=== PATIENT | female | born 1980 | race Two or more races ===

== ENCOUNTER 2021-04-18 10:02 | Outpatient (REF) | payer BC, SELFPAY ==
[2021-04-18 10:25] LABS: MANUAL DIFF FLAG NO
[2021-04-18 10:50] LABS: Basophils Percent Auto 0.7 % (0-2); Eosinophils Absolute Auto 0.1 X10*3/uL (0.0-0.4); Eosinophils Percent Auto 0.9 % (0-4); Hematocrit 40.9 % (37-47); Hemoglobin 13.1 g/dl (12.0-16.0); Imm Gran Abs Auto 0.03 X10*3/uL (0.00-0.03); Imm Gran Pct Auto 0.5 % (0.0-0.4); Lymphocytes Absolute Auto 1.8 X10*3/uL (1.2-4.9); Lymphocytes Percent Auto 30.3 % (20-40); Mean Corpuscular Hemoglobin 26.8 pg (27.0-33.0); Mean Corpuscular Volume 83.8 fL (80-98); Mean Platelet Volume 9.6 fL (9.4-12.3); Monocytes Absolute Auto 0.5 X10*3/uL (0.1-1.2); Monocytes Percent Auto 7.9 % (2-11); Neutrophils Absolute Auto 3.5 X10*3/uL (2.0-8.3); Neutrophils Percent Auto 59.7 % (45-73); Platelet Count 245 X10*3/uL (160-400); Red Blood Count 4.88 X10*6/uL (4.20-5.50); Red Cell Distribution Width 14.5 % (11.0-16.0); White Blood Count 5.8 X10*3/uL (4.8-10.8)
[2021-04-18 11:19] LABS: Alanine Aminotransferase 12 U/L (0-31); Albumin Level 4.2 g/dL (3.5-5.0); Alkaline Phosphatase 54 U/L (39-117); Anion Gap 10 (12-20); Aspartate Amino Transferase 17 U/L (5-31); Bilirubin Total 0.9 mg/dL (0.0-1.0); Blood Urea Nitrogen 9 mg/dL (9-16); Calcium 10.7 mg/dL (8.4-10.2); Carbon Dioxide 23 mmol/L (22-29); Chloride 110 mmol/L (96-108); Cholesterol 147 mg/dL; Estimated Glomerular Filt Rate > 60; Glucose Fasting 99 mg/dL (60-99); HDL Cholesterol 48 mg/dL; LDL Cholesterol Calculated 88 mg/dl; Potassium 4.5 mmol/L (3.3-5.1); Sodium 138 mmol/L (135-145); Total Protein 7.2 g/dL (6.5-8.0); Triglycerides 59 mg/dL
[2021-04-25 15:16] LABS: Vitamin D 25-OH, D2 <4 ng/mL; Vitamin D 25-OH, D3 17 ng/mL; Vitamin D 25-OH, Total 17 ng/mL (30-100)
== END 2021-04-18 10:03 | disposition home or self-care (01) ==
LOC: HO.LAB 10:02
PROVIDERS: PCP Internal Medicine; Visit Provider Internal Medicine
DX: E78.5 Hyperlipidemia, unspecified (principal); D64.9 Anemia, unspecified; E55.9 Vitamin D deficiency, unspecified; Z83.3 Family history of diabetes mellitus
CPT/HCPCS: 36415; 80053; 80061; 82306; 85025

== ENCOUNTER 2021-05-20 08:24 | Outpatient (REF) | payer BC, SELFPAY ==
[2021-05-21 13:57] LABS: CT PCR NOT DETECTED (Not Detect.); NG PCR NOT DETECTED (Not Detect.)
[2021-05-21 16:41] LABS: PTHI 191 pg/mL (14-64)
[2021-05-22 10:52] LABS: BV Int Neg Control Negative (Negative); BV Int Pos Control Positive (Positive)
[2021-05-22 14:51] LABS: Calcium, Ionized 5.5 mg/dL (4.8-5.6)
[2021-05-27 02:41] LABS: HPV mRNA E6/E7 rflx Not Detected (Not Detected)
== END 2021-05-20 08:25 | disposition home or self-care (01) ==
LOC: HO.LAB 08:24
PROVIDERS: Absent Provider Internal Medicine; PCP Internal Medicine; Visit Provider Advanced Practice Midwife
DX: Z01.419 Encounter for gynecological examination (general) (routine) without abnormal findings (principal); E83.52 Hypercalcemia; Z98.51 Tubal ligation status; Z20.2 Contact with and (suspected) exposure to infections with a predominantly sexual mode of transmission
CPT/HCPCS: 36415; 82330; 83970; 87480; 87491; 87510; 87591; 87624; 87660; 88142

== ENCOUNTER 2022-03-25 16:10 | Outpatient (REF) | payer BC, SELFPAY ==
[2022-03-27 05:21] LABS: Rubella IgG Antibody 1.87 Index
== END 2022-03-25 16:11 | disposition home or self-care (01) ==
LOC: HO.LAB 16:10
PROVIDERS: PCP Internal Medicine; Visit Provider Internal Medicine
DX: Z01.84 Encounter for antibody response examination (principal)
CPT/HCPCS: 36415; 86735; 86762; 86765

== ENCOUNTER 2022-04-20 16:04 | Outpatient (REF) | payer BC, SELFPAY ==
[2022-04-20 16:44] LABS: Albumin Level 4.2 g/dL (3.5-5.0)
[2022-04-20 17:13] LABS: Thyroid Stimulating Hormone 0.73 uIU/mL (0.32-4.0); Vitamin D 25-OH Total 12.5 ng/mL (>30)
[2022-04-21 10:46] LABS: Calcium (PTHI) 10.8 mg/dL (8.6-10.2); PTHI 179 pg/mL (16-77)
[2022-04-23 10:32] LABS: Calcium, Ionized 5.8 mg/dL (4.8-5.6)
== END 2022-04-20 16:05 | disposition home or self-care (01) ==
LOC: HO.LAB 16:04
PROVIDERS: PCP Internal Medicine; Visit Provider Internal Medicine
DX: E55.9 Vitamin D deficiency, unspecified (principal); E21.3 Hyperparathyroidism, unspecified; R53.83 Other fatigue
CPT/HCPCS: 36415; 82040; 82306; 82310; 82330; 83970; 84443

== ENCOUNTER 2022-07-27 14:54 | Outpatient (REF) | payer BC, SELFPAY ==
[2022-07-28 05:23] LABS: CT PCR NOT DETECTED (Not Detect.); NG PCR NOT DETECTED (Not Detect.)
[2022-07-28 09:44] LABS: BV Int Neg Control Negative (Negative); BV Int Pos Control Positive (Positive)
== END 2022-07-27 14:55 | disposition home or self-care (01) ==
LOC: HO.LNP 14:54
PROVIDERS: PCP Internal Medicine; Visit Provider Advanced Practice Midwife
DX: Z01.419 Encounter for gynecological examination (general) (routine) without abnormal findings (principal); N89.8 Other specified noninflammatory disorders of vagina
CPT/HCPCS: 0353U; 87480; 87510; 87660

== ENCOUNTER 2022-08-19 06:10 | Outpatient (REF) | payer BC, SELFPAY ==
[2022-08-19 06:34] LABS: MANUAL DIFF FLAG NO
[2022-08-19 07:41] LABS: Basophils Percent Auto 0.4 % (0-2); Eosinophils Absolute Auto 0.1 X10*3/uL (0.0-0.4); Eosinophils Percent Auto 1.3 % (0-4); Hematocrit 41.8 % (37.0-47.0); Imm Gran Abs Auto 0.04 X10*3/uL (0.00-0.03); Imm Gran Pct Auto 0.4 % (0.0-0.4); Lymphocytes Absolute Auto 1.8 X10*3/uL (1.2-4.9); Lymphocytes Percent Auto 19.2 % (20-40); Mean Corpuscular HGB Conc 31.1 g/dl (31.0-35.0); Mean Corpuscular Hemoglobin 25.7 pg (27.0-33.0); Mean Corpuscular Volume 82.6 fL (80.0-98.0); Mean Platelet Volume 9.2 fL (9.4-12.3); Monocytes Absolute Auto 0.6 X10*3/uL (0.1-1.2); Monocytes Percent Auto 6.5 % (2-11); Neutrophils Absolute Auto 6.6 x10*3/uL (2.0-8.3); Neutrophils Percent Auto 72.2 % (45-73); Platelet Count 277 X10*3/uL (160-400); Red Blood Count 5.06 X10*6/uL (4.20-5.50); Red Cell Distribution Width 14.8 % (11.0-16.0); White Blood Count 9.1 X10*3/uL (4.8-10.8)
[2022-08-19 08:08] LABS: Alanine Aminotransferase 12 U/L (0-31); Alkaline Phosphatase 68 U/L (39-117); Anion Gap 14 (12-20); Aspartate Amino Transferase 18 U/L (5-31); Bilirubin Total 0.6 mg/dL (0.0-1.0); Blood Urea Nitrogen 7 mg/dL (9-16); Calcium 10.2 mg/dL (8.4-10.2); Carbon Dioxide 20 mmol/L (22-29); Chloride 108 mmol/L (96-108); Cholesterol 171 mg/dL; Estimated Glomerular Filt Rate > 60; Glucose Fasting 92 mg/dL (60-99); HDL Cholesterol 52 mg/dL; LDL Cholesterol Calculated 105 mg/dl; Potassium 4.3 mmol/L (3.3-5.1); Sodium 138 mmol/L (135-145); Total Protein 6.9 g/dL (6.5-8.0); Triglycerides 70 mg/dL
[2022-08-19 08:28] LABS: Vitamin D 25-OH Total 29.7 ng/mL (>30)
[2022-08-20 12:39] LABS: Calcium (PTHI) 10.6 mg/dL (8.6-10.2); PTHI 180 pg/mL (16-77)
[2022-08-20 15:18] LABS: Calcium, Ionized 5.8 mg/dL (4.8-5.6)
== END 2022-08-19 06:11 | disposition home or self-care (01) ==
LOC: HO.LAB 06:10
PROVIDERS: PCP Internal Medicine; Visit Provider Internal Medicine
DX: Z00.00 Encounter for general adult medical examination without abnormal findings (principal); R53.83 Other fatigue; E55.9 Vitamin D deficiency, unspecified; E21.3 Hyperparathyroidism, unspecified
CPT/HCPCS: 36415; 80053; 80061; 82306; 82330; 83970; 85025

== ENCOUNTER → 2022-08-27 15:56 | Outpatient (BNVA) | payer BC, SELFPAY | PROVIDERS: PCP Internal Medicine; Visit Provider Internal Medicine Endocrinology, Diabetes & Metabolism | DX: Z13.89 Encounter for screening for other disorder (principal) ==

== ENCOUNTER 2022-08-29 12:16 | Outpatient (REF) | payer BC, SELFPAY ==
[2022-08-29 12:47] LABS: Creatinine, mg/dL 135.19
[2022-08-29 13:56] LABS: Creatinine, 24Hr Urine 1.5 G/Day (1.0-2.0); Total Volume 24 Hour Urine 1125 mL
[2022-08-31 19:53] LABS: Calcium, 24 Hr Urine 358 mg/24 h; Calcium/Creatinine Ratio 259 mg/g creat (30-275); Creatinine 24Hr Urine 1.38 g/24 h (0.50-2.15)
== END 2022-08-29 12:17 | disposition home or self-care (01) ==
LOC: HO.LNP 12:16
PROVIDERS: Visit Provider Internal Medicine Endocrinology, Diabetes & Metabolism
DX: E83.52 Hypercalcemia (principal)
CPT/HCPCS: 82340; 82570

== ENCOUNTER 2022-10-26 11:43 | Outpatient (REF) | payer BC, SELFPAY ==
[2022-10-26 11:52] LABS: MANUAL DIFF FLAG NO
[2022-10-26 12:03] LABS: Basophils Percent Auto 0.7 % (0-2); Eosinophils Absolute Auto 0.1 X10*3/uL (0.0-0.4); Eosinophils Percent Auto 1.3 % (0-4); Hematocrit 40.2 % (37.0-47.0); Hemoglobin 12.7 g/dl (12.0-16.0); Imm Gran Abs Auto 0.02 X10*3/uL (0.00-0.03); Imm Gran Pct Auto 0.3 % (0.0-0.4); Lymphocytes Absolute Auto 1.8 X10*3/uL (1.2-4.9); Lymphocytes Percent Auto 30.9 % (20-40); Mean Corpuscular HGB Conc 31.6 g/dl (31.0-35.0); Mean Corpuscular Hemoglobin 26.5 pg (27.0-33.0); Mean Corpuscular Volume 83.9 fL (80.0-98.0); Mean Platelet Volume 9.2 fL (9.4-12.3); Monocytes Absolute Auto 0.4 X10*3/uL (0.1-1.2); Monocytes Percent Auto 7.2 % (2-11); Neutrophils Absolute Auto 3.5 x10*3/uL (2.0-8.3); Neutrophils Percent Auto 59.6 % (45-73); Platelet Count 312 X10*3/uL (160-400); Red Blood Count 4.79 X10*6/uL (4.20-5.50)
[2022-10-26 12:22] LABS: Calcium 10.7 mg/dL (8.4-10.2); Estimated Glomerular Filt Rate > 60
[2022-10-28 19:43] LABS: Immunoglobulin E 48 kU/L (<OR=114)
== END 2022-10-26 11:44 | disposition home or self-care (01) ==
LOC: HO.LAB 11:43
PROVIDERS: Internal Medicine Endocrinology, Diabetes & Metabolism; PCP Internal Medicine; Visit Provider Internal Medicine
DX: E83.52 Hypercalcemia (principal); L50.9 Urticaria, unspecified; D64.9 Anemia, unspecified
CPT/HCPCS: 36415; 82310; 82565; 82785; 85025

== ENCOUNTER 2023-06-08 17:21 | Outpatient (AMB) | payer BC, SELFPAY ==
[2023-06-08 17:23] VITALS: BP 110/72; BMI 26.9
--- NOTE | 2023-06-08 17:23 | MHC.PC.OV ---
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 Accompanied by: Self / Same As Patient Allergies No Known Allergies Allergy (Verified 06/08/23 17:33) Medication List - Last Reconciled 06/08/23 by Leanne Castrejon MD calcium citrate-vitamin D3 250 mg-5 mcg (200 unit) (Citracal Regular) 1 tab PO TID Tobacco use date assessed: 10/26/22 Dental Screening Dental Screen Date: 06/08/23 Did you have a dental visit in the last 12 months?: Yes Did you have a dental problem in the last 6 months where you did not have access to dental care?: No Was dental information given to patient?: Patient has dentist HPI HPI Comments History of Present Illness Details This is a 42-year-old female that comes for her physical exam. Last Pap smear was 2021. Has never had a mammogram. Had parathyroidectomy and is on calcium supplements. No chest pain or shortness of breath. [facility] Medical History (Updated 10/26/22 @ 11:36 by Leanne Castrejon MD) Hyperparathyroidism Hypovitaminosis D Hypercalcemia Family history of diabetes mellitus Surgical History History of parathyroid surgery History of removal of calculus of renal pelvis through percutaneous nephrostomy H/O tubal ligation Family History Mother Diabetes Father Heart disease Social History Household Members: Family Housing: House Alcohol intake: never Patient Tobacco Use Status: Never used Tobacco e-Cigarette/Vaping Use: Never Used Second Hand Smoke Exposure: No service: No Current occupational status: employed Current occupational exposures/hazards: No Cognitive needs: No Hearing needs: No Vision needs: No Female Reproductive History Menstrual Age of Menarche: 13 Questionnaire Thrive Questionnaire Date Thrive assessed: 08/24/22 KAVITA-7 AMB Questionnaire KAVITA-7 Date KAVITA - 7 assessed: 10/26/22 Source: Developed by Beckie SierraW. Feliciano, Jose Daniel Barry and colleagues, with an educational sunshine from [employer] Review of Systems Const All systems reviewed & are unremarkable except as noted in HPI and below Eyes Reports no additional complaints, Denies change in vision and Denies other visual disturbances Card Denies chest pain at rest, Denies chest pain with activity, Denies edema, Denies irregular heart rhythm, Denies claudication, Denies dyspnea, Denies dyspnea on exertion, Denies orthopnea, Denies paroxysmal nocturnal dyspnea and Denies slow heart rate Resp Denies cough, Denies dyspnea and Denies dyspnea on exertion GI Denies abdominal pain, Denies change in bowel habits, Denies excessive flatus, Denies nausea and Denies vomiting Denies urinary incontinence, Denies urinary hesitancy and Denies urinary urgency Musc Denies abnormal gait, Denies atrophy, Denies deformity and Denies limited range of motion Skin/Breast Denies bleeding lesions, Denies changing lesions and Denies rash Neuro Denies abnormal gait and Denies lack of coordination Physical exam (Primary Care) Vital Signs: Last Vital Signs BP 110/72 06/08/23 17:23 BMI result Body Mass Index 26.9 Tobacco/Smoking Status: Tobacco use Status Tobacco use date assessed 10/26/22 06/08/23 17:28 Patient Tobacco Use Status Never used Tobacco 06/08/23 17:28 Tobacco use type 05/25/22 09:09 e-Cigarette/Vaping Use Never Used 06/08/23 17:28 Thrive Assessment: Date of Thrive Assessment Date Thrive assessed 08/24/22 06/08/23 17:28 Const Orientation/consciousness: patient oriented x3 [facility]: Yes normal to inspection, Yes normocephalic and Yes atraumatic Ears: external ears normal Eyes General: appearance normal, both eyes and all related structures Eyelids: Yes eyelids normal Conjunctivae: conjunctivae normal Neck Neck: Yes normal visual inspection and Yes supple Resp Effort & Inspection: normal respiratory effort Auscultation: clear to auscultation bilaterally Cardio Jugular venous distension: no JVD Rate: regular rate Rhythm: regular rhythm Heart sounds: S1 normal heart sound present and S2 normal heart sound present GI Inspection: Yes normal to inspection Palpation (GI): Soft to palpation and nontender Auscultation: normal bowel sounds Skin General skin exam: no rashes or lesions noted Neuro General: patient oriented x3 and no focal motor deficits Extrem General: Yes full ROM Psych Appearance: grossly normal Office Procedures Flu Questionnaire Does the patient have a severe egg allergy?: No Does the patient have severe life threatening allergies?: No Does the patient have a fever or illness today?: No Has the patient ever had Guillain-[place] Syndrome?: No Has the patient ever had any past reaction to a flu shot?: No Immunizations flu vacc [id number] 6mos up(PF) 60 mcg(15 mcgx4)/0.5 mL IM syringe Performing Provider: Leanne Castrejon MD Performing Location: [facility] Administered by: EJ Marley on 06/08/23 17:48 Dose Route Admin Location Dispensed Lot Number Expiration Date NDC Tear Down Matcher 0.5 mL IM Right Deltoid 0.5 mL [id number] 01/09/24 60705-792-51 [employer] VIS Given Date VIS Provided VIS Publication Date 06/08/23 Single Vaccine 21 Eligibility Eligibility Date Funding Source Not [facility] Eligible 06/08/23 Private Assessment and Plan Assessment & Plan (1) Physical exam: Code(s): Z00.00 - Encounter for general adult medical examination without abnormal findings Plan: Repeat in a year. Orders: Orders MM screening mammo BI Today Z12.31 - Encounter for screening mammogram for malignant neoplasm of breast Lipid Panel Today Z00.00 - Encounter for general adult medical examination without abnormal findings [employer] Panel Fast Today Z00.00 - Encounter for general adult medical examination without abnormal findings Influenza [id number] Immunization Today Z23 - Encounter for immunization Coding Level of Care Code Est Pt Prev Care 40-64y(54667) Diagnoses Physical exam Z00.00 Time Spent (min) 32
== END 2023-06-08 17:48 | disposition home or self-care (01) ==
LOC: HO.HMGH 17:21
PROVIDERS: PCP Internal Medicine; Visit Provider Internal Medicine
DX: Z00.00 Encounter for general adult medical examination without abnormal findings (principal); Z23 Encounter for immunization
CPT/HCPCS: 90471; 90686; 99396

== ENCOUNTER 2023-07-15 12:25 | Outpatient (REF) | payer BC, SELFPAY ==
--- NOTE | ~2023-07-15 | MM_ITS ---
EXAMINATION: MM SCREENING DIGITAL BREAST TOMOSYNTHESIS, BILATERAL CLINICAL INFORMATION: Screening. Asymptomatic. COMPARISON: Mammography: This is a baseline mammogram. TECHNIQUE: Digital breast tomosynthesis is performed in both the craniocaudal and mediolateral oblique views along with computer-aided detection (CAD). Synthesized 2D images are generated from the tomosynthesis. FINDINGS: The breasts are heterogeneously dense, which may obscure small masses (ACR BI-RADS breast composition Category c). There is a focal asymmetry in the upper inner quadrant of the right breast which warrants additional mammographic and targeted sonographic evaluation. There is a focal asymmetry in the upper outer quadrant of the left breast which warrants additional mammographic and targeted sonographic evaluation. There are no abnormal calcifications in either breast. MM/MM tomosynthesis screening BI IMPRESSION: Bilateral focal asymmetries warrant additional mammographic and targeted sonographic evaluation ASSESSMENT: BI-RADS BI-RADS 0 - Incomplete: Needs additional Imaging. RECOMMENDATION: 1. Additional views of both breasts 2. Targeted ultrasound of both breasts. 3. Radiology department staff will contact the patient for additional imaging. Additional Imaging required This examination should not preclude the clinical evaluation of a suspicious palpable abnormality. This patient's information was entered into a reminder system with a target due date for their next mammogram.
== END 2023-07-15 12:26 | disposition home or self-care (01) ==
LOC: HO.MAMMO 12:25
PROVIDERS: PCP Internal Medicine; Visit Provider Internal Medicine
DX: Z12.31 Encounter for screening mammogram for malignant neoplasm of breast (principal)
CPT/HCPCS: 77063; 77067

== ENCOUNTER → 2023-07-15 12:30 | Outpatient (BNV) | payer BC, SELFPAY | PROVIDERS: PCP Internal Medicine; Visit Provider Radiology Diagnostic Radiology | DX: Z12.31 Encounter for screening mammogram for malignant neoplasm of breast (principal) | CPT/HCPCS: 77063; 77067 ==

== ENCOUNTER 2023-09-07 13:39 | Outpatient (REF) | payer BC, SELFPAY ==
--- NOTE | ~2023-09-07 | MM_ITS ---
EXAMINATION: MM DIAGNOSTIC DIGITAL BREAST TOMOSYNTHESIS, BILATERAL US BREAST LIMITED, BILATERAL MAMMOGRAPHY: CLINICAL INFORMATION: Follow-up bilateral focal asymmetries seen on baseline mammography 07/15/2023, including a region of architectural distortion at 10:00 on the right. COMPARISON: Mammography: Baseline exam 07/15/2023. TECHNIQUE: Digital breast tomosynthesis is performed in the following views: Bilateral full-field digital 3-D ML views, bilateral 3-D small paddle spot compression MLO views, bilateral small paddle 3-D spot compression CC views. Computer-aided diagnosis was used for this study. FINDINGS: The breasts are heterogeneously dense, which may obscure small masses (ACR BI-RADS breast composition Category c). RIGHT BREAST: -There is a significant focus of architectural distortion in the upper slightly inner right breast, middle one third, 10:00 axis, best appreciated on the ML, and spot compression CC view. This is suspicious and will be evaluated with ultrasound to assess for underlying mass. -In the 9:00 axis of the right breast there is an oval mass measuring approximate 7 mm which will be evaluated by ultrasound. -In the 10:00 axis of the right breast, there is a lymph node versus lobular mass measuring 9 mm which will be evaluated by ultrasound. -No definite axillary adenopathy noted. -No skin thickening noted. LEFT BREAST: -In the 3:00 axis, there is a lobular mass posterior depth measuring 1.8 x 1.3 x 1.2 cm on mammography. This will be evaluated by ultrasound. -In the 2:00 axis, there is an oval circumscribed mass posterior depth measuring 1.0 cm on mammography. This will be evaluated by ultrasound. -In the 2:00 axis, there is an immediately abutting lobulated mass measuring 8 x 6 mm on mammography. This will be evaluated by ultrasound. -No axillary or skin thickening is evident. ULTRASOUND: CLINICAL INFORMATION: Evaluate bilateral breast abnormalities as described above. COMPARISON: None TECHNIQUE: Targeted sonographic evaluation of both breasts was performed using a high frequency linear transducer. Selected archived documentation. FINDINGS: RIGHT BREAST: -In the 10:00 axis, 5 cm from the nipple, there is an irregular shadowing somewhat linear markedly hypoechoic mass with irregular margins measuring an estimated 1.7 x 0.7 x 0.6 cm (approximate due to dense posterior shadowing) with associated color flow on color Doppler imaging, dense posterior shadowing, and surrounding hyperechoic fat. This finding is highly suspicious and ultrasound-guided biopsy recommended. This correlates well with the area of architectural distortion. -In the 9:00 axis, 8 cm from the nipple, there is a 5 x 4 x 7 cm lobular mass with good through transmission, no internal color Doppler flow, hypoechoic, highly suggestive of a fibroadenoma. Six-month follow-up recommended of this finding. -In the 10:00 axis, 10 cm from the nipple, there is an oval hypoechoic minimally lobular mass with through transmission measuring 9 x 6 x 3 cm, also likely a benign fibroadenoma. Six-month interval follow-up recommended of this finding. -No abnormal lymph nodes are noted in the right axilla. LEFT BREAST: -In the 3:00 axis, 6 cm from the nipple, there is a 1.9 x 1.1 x 1.5 cm oval hypoechoic mass with some degree of through transmission, lobulated margins, and no internal color Doppler flow, most likely a fibroadenoma or variant. Ultrasound-guided biopsy recommended given size. -The 2:00 axis just abutting the larger mass, 5 cm from the nipple, there is a macrolobulated somewhat irregular hypoechoic mass measuring 8 x 6 x 8 mm, with good through transmission, no internal color Doppler flow, most likely a benign fibroadenoma. Six-month follow-up recommended. -In the 2:00 axis, 5 cm from the nipple, also just abutting the larger mass, there is a oval circumscribed hypoechoic nodule with good through transmission measuring 6 x 4 x 4 mm. This is likely a benign fibroadenoma. Six-month interval follow-up recommended. MM/MM tomosynthesis diagnostic BI IMPRESSION: Right Breast: -Suspicious finding at 10:00 axis correlating with the region of architectural distortion for which ultrasound-guided biopsy is recommended. See above for details. 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 -There is no evidence of abnormal right axillary lymphadenopathy. Left Breast: -At the 3:00 axis, 6 cm from the nipple there is a 1.9 cm oval hypoechoic lobular mass, likely fibroadenoma or variant, for which ultrasound-guided biopsy is recommended given size and appearance. -At the 2:00 axis just abutting the larger mass, 5 cm from the nipple, there is a second macrolobulated somewhat irregular probable fibroadenoma measuring 8 x 6 x 8 mm, for which ultrasound-guided biopsy is recommended for confirmation. -Also is a 2:00 axis just abutting the larger mass, 5 cm from the nipple, there is a third oval circumscribed nodule with good through transmission measuring 6 mm. This is likely a benign fibroadenoma and six-month interval follow-up is recommended. Findings and plan discussed with the patient by the technologist in detail, who understands 3 site ultrasound-guided biopsy (2 on the left, 1 on the right) is necessary. OVERALL ASSESSMENT: Mammography: BI-RADS 4 - Suspicious finding Ultrasound: BI-RADS 4 - Suspicious finding RECOMMENDATION: Biopsy recommended This patient's information was entered into a reminder system with a target due date for their next mammogram.
== END 2023-09-07 13:40 | disposition home or self-care (01) ==
LOC: HO.MAMMO 13:39
PROVIDERS: PCP Internal Medicine; Visit Provider Internal Medicine
DX: N64.89 Other specified disorders of breast (principal)
CPT/HCPCS: 76642; 77062; 77066

== ENCOUNTER → 2023-09-07 14:00 | Outpatient (BNV) | payer BC, SELFPAY | PROVIDERS: PCP Internal Medicine; Visit Provider Radiology Diagnostic Radiology | DX: R92.8 Other abnormal and inconclusive findings on diagnostic imaging of breast (principal) | CPT/HCPCS: 76642; 77062; 77066 ==

== ENCOUNTER 2023-09-10 10:34 | Outpatient (AMB) | payer BC, SELFPAY ==
--- NOTE | 2023-09-10 10:35 | A.OFFVIS_ITS ---
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 Mane Valdez. [facility] Medical History Hyperparathyroidism Hypovitaminosis D Hypercalcemia Family history of diabetes mellitus Surgical History History of parathyroid surgery History of removal of calculus of renal pelvis through percutaneous nephrostomy H/O tubal ligation Family History Mother Diabetes Father Heart disease Social History Household Members: Family Housing: House Alcohol intake: never Patient Tobacco Use Status: Never used Tobacco e-Cigarette/Vaping Use: Never Used Second Hand Smoke Exposure: No service: No Current occupational status: employed Current occupational exposures/hazards: No Cognitive needs: No Hearing needs: No Vision needs: No Female Reproductive History Menstrual Age of Menarche: 13 Date of last menstrual period: 08/29/23 control method: permanent sterilization Total pregnancies: 3 Full term: 2 Date of last pap smear: 06/01/21 (negative) History of abnormal pap smear: No Date of Mammogram: 09/07/23 (abnormal) History of abnormal mammogram: Yes (Evaluate Bilateral Breast abnormalities) Physical Exam Vital Signs: Last Vital Signs BP 120/78 09/10/23 10:58 BMI result Body Mass Index 26.9 Const General: healthy appearing, comfortable, no acute distress, well developed and alert Nutritional Appearance: average body habitus Orientation/consciousness: patient oriented x3 Limitations: no limitations HEENT Head: Yes normocephalic Neck Other: Patient has scars from parathyroidectomy surgery extremely well. Neck: Yes normal visual inspection Chest Chest palpation & inspection: normal inspection of the chest Breast/axilla inspection: normal inspection of the breasts and normal inspection of the axillae Breast/axilla palpation: normal palpation of the breasts and normal palpation of the axillae Resp Effort & Inspection: normal respiratory effort GI Inspection: Yes normal to inspection, No Abdominal wall edema and No distended Palpation (GI): Soft to palpation and nontender Other: Normal healthy pink vagina with clear mucus that appears within normal limits cervix multiparous pink mobile nontender anterior uterus is small retroverted and retroflexed mobile nontender, adnexa nontender no organ a megaly, good tone with Kegel. General: Yes bladder normal to palpation External Female Exam: normal external appearance and normal appearance of the urethra Speculum Exam - Vagina: normal appearance of the vagina, normal palpation and normal vaginal discharge Speculum Exam - Cervix: normal appearance of the cervix, normal palpation and nontender Bimanual exam- vagina & uterus: normal bimanual exam, normal palpation, uterine size normal, bladder normal to palpation, consistency normal, normal palpation, uterine mobility normal, uterine shape normal, No Cervical tenderness present, non-tender and no cervical motion tenderness Bimanual Exam- Adnexa, other: normal adnexae, no masses, normal and No adnexal tenderness Neuro General: patient oriented x3 Results Reviewed Results Reviewed: Name: Remy Marcelo Age/Sex: 40/F Attending: Shweta Ford CNM : 1980 Submitted by: Shweta Ford CNM Copies to: Leanne Lopez MD MR #: [id number] Status: DEP REF Collected: 05/20/21 Location: .LAB Received: 05/22/21 Interpretation Satisfactory for evaluation. Blood. Mild inflammation. Negative for intraepithelial lesion or malignancy. HPV mRNA E6/E7: NOT DETECTED This assay detects E6/E7 viral messenger RNA (mRNA) from 14 high-risk HPV types (16, 18, 31, 33, 35, 39, 45, 51, 52, 56, 58, 59, 66, 68) HPV testing performed by [facility], [place], [place]. See reference laboratory portion of the EMR for entire report. Clinical Information LMP: 05/16/21 Previous PAP test: Unknown date (? 6 yrs ago), WNL Material Received ThinPrep-Cervical Copies To Shweta Ford CNM [address] [place] [address] Dr. Loya [address] [id number] Leanne Lopez MD [address] [place] [address] Dr. [address]oya [address] [id number] Electronically Signed By: GEORGETTE Garcia (ASCP) 06/03/21 1428 The Pap Test is a screening procedure with the inherent possibility of both false negative and false positive results. Results should be interpreted in the context of historic and current clinical findings. Reliability of the Pap Test is enhanced by performing the test on a regular repetitive basis. Patient: Remy Marcelo Age/Sex: 40/F MR#: [id number] Page 1 of 1 Assessment & Plan Assessment & Plan (1) Well woman exam with routine gynecological exam: Code(s): Z01.419 - Encounter for gynecological examination (general) (routine) without abnormal findings (2) Cervical cancer screening: Comment: 05/20/21 pap= neg, neg hpv Code(s): Z12.4 - Encounter for screening for malignant neoplasm of cervix Plan -----Discussed in this visit the following: healthy balanced diet, regular and consistent exercise, getting recommended health screens, doing the best she can for her particular health concerns, kegel exercises, pap smear screening and followup recommendations, mammography screening and SBE, normal changes in cycles in her life stage--- She is taking very good care of herself and I wished her luck with her biopsy next week. We will see her every year no testing was necessary today and she de clined any STI testing if she has no concerns it would not be any testing required until her next Pap smear which would be in 2025 5 years from her last negative. . Coding Level of Care Code Est Pt Prev Care 40-64y(89055) Diagnoses Well woman exam with routine gynecological exam Z01.419 Cervical cancer screening Z12.4
[2023-09-10 10:58] VITALS: BP 120/78; BMI 26.9
== END 2023-09-10 11:39 | disposition home or self-care (01) ==
LOC: HO.HWSM 10:35
PROVIDERS: PCP Internal Medicine; Visit Provider Advanced Practice Midwife
DX: Z01.419 Encounter for gynecological examination (general) (routine) without abnormal findings (principal); Z12.4 Encounter for screening for malignant neoplasm of cervix
CPT/HCPCS: 99396

== ENCOUNTER → 2023-09-10 10:34 | Outpatient (BNVA) | payer BC, SELFPAY | PROVIDERS: PCP Internal Medicine; Visit Provider Advanced Practice Midwife ==

== ENCOUNTER 2023-09-15 07:57 | Outpatient (AMB) | payer BC, SELFPAY ==
--- NOTE | 2023-09-15 08:05 | MHC.OFFVIS ---
Intake Vital Signs 09/15/23 08:06 Height 5 ft 2 in Weight 146 lb BMI 26.7 BP 129/71 Blood Pressure Location Rt brachial Position Sitting Pulse 68 Intake Visit Reasons: rt breast us guided bx & left breast 2 areas Intake Note: This patient presents for a breast consult for right breast Ultrasound guided biopsy 10 o'clock mass, left breast 2 areas 2 & 3 o'clock mass. Pt c/o; reports no breast complaints at this time. Digital Marketing Program Manager Required: Yes Digital Marketing Program Manager Language: Ux Engineer Name: Pt declined audit associate Accompanied by: Spouse Allergies No Known Allergies Allergy (Verified 09/15/23 08:15) Medication List - Last Reconciled 09/15/23 by Mane Valdez MD calcium carbonate 500 mg PO DAILY calcium citrate-vitamin D3 250 mg-5 mcg (200 unit) (Citracal Regular) 1 tab PO TID HPI rt breast us guided bx & left breast 2 areas HPI Details 43-year-old female referred for breast masses. She had undergone a screening mammogram last month showing bilateral breast masses. She was brought in for targeted mammogram and ultrasound. This showed a hypoechoic mass with irregular margins measuring 1.7 x 0.7 x 0.6 at the 10 o'clock position of the left breast. An ultrasound guided biopsy had been recommended for this. On the left breast was note of a 1.9 x 1.1 by 1.5 oval hypoechoic mass at the 3 o'clock position. An ultrasound-guided biopsy was also recommended for this. There was a 2nd mass measuring 8 x 6 x 8 mm at the 02:00 o'clock position that appears to be a fibroadenoma but an ultrasound-guided biopsy was also recommended for this. He denies any palpable breast masses Her menarche was at age of 13. She had 3 pregnancies. Her 1st was the age of 19. She still has her periods She denies a family history of breast cancer. [facility] Medical History Left breast mass Breast mass, right Hyperparathyroidism Hypovitaminosis D Hypercalcemia Family history of diabetes mellitus Surgical History History of parathyroid surgery History of removal of calculus of renal pelvis through percutaneous nephrostomy H/O tubal ligation Family History Mother Diabetes Father Heart disease Social History Household Members: Family Housing: House Alcohol intake: never Patient Tobacco Use Status: Never used Tobacco e-Cigarette/Vaping Use: Never Used Second Hand Smoke Exposure: No service: No Current occupational status: employed Current occupational exposures/hazards: No Cognitive needs: No Hearing needs: No Vision needs: No Female Reproductive History Menstrual Age of Menarche: 13 Total pregnancies: 2 Full term: 2 Review of Systems Const Denies chills and Denies fever(s) Card Denies chest pain, Denies dyspnea and Denies dyspnea on exertion Resp Denies cough, Denies dyspnea and Denies dyspnea on exertion GI Denies hematochezia and Denies change in bowel habits Denies hematuria Musc Denies back pain and Denies limited range of motion Neuro Denies focal weakness and Denies convulsions Psych Denies depression and Denies mood swings Physical Exam Vital Signs: Last Vital Signs Pulse 68 09/15/23 08:06 BP 129/71 09/15/23 08:06 BMI result Body Mass Index 26.7 Const General: comfortable and no acute distress Orientation/consciousness: patient oriented x3 Neck Neck: Yes no lymphadenopathy Chest Other: No palpable breast masses, no nipple or skin changes, no axillary lymphadenopathy Resp Auscultation: clear to auscultation bilaterally Cardio Rhythm: regular rhythm GI Palpation (GI): Soft to palpation, nontender and no guarding Neuro General: patient oriented x3 Assessment & Plan Assessment & Plan (1) Left breast mass: Code(s): N63.20 - Unspecified lump in the left breast, unspecified quadrant Plan: She has 2 left breast masses as described above an ultrasound-guided biopsy had been recommended for these 2 lesions. I explained to her the [facility] I will see her again in the office next week to discuss the path report. (2) Breast mass, right: Code(s): N63.10 - Unspecified lump in the right breast, unspecified quadrant Plan: She has a right breast mass as described above seen on ultrasound. An ultrasound-guided biopsy had been recommended. She understands the technique of this procedure. I will see her in the office next week to review the path report as well. Orders: Orders US breast ndl core biopsy LT Today N63.20 - Unspecified lump in the left breast, unspecified quadrant US breast ndl core biopsy RT Today N63.10 - Unspecified lump in the right breast, unspecified quadrant US breast ndl core bio ea add Today N63.20 - Unspecified lump in the left breast, unspecified quadrant Coding Level of Care Code New Pt Level 3 (62526) Diagnoses Left breast mass N63.20 Breast mass, right N63.10
[2023-09-15 08:06] VITALS: BP 129/71; PULSE 68; BMI 26.7
== END 2023-09-15 08:43 | disposition home or self-care (01) ==
PROVIDERS: PCP Internal Medicine; Visit Provider Surgery
DX: N63.20 Unspecified lump in the left breast, unspecified quadrant (principal); N63.10 Unspecified lump in the right breast, unspecified quadrant
CPT/HCPCS: 99203

== ENCOUNTER 2023-09-15 08:51 | Outpatient (REF) | payer BC, SELFPAY ==
--- NOTE | ~2023-09-15 | US_ITS ---
PROCEDURE: US GUIDED BREAST BIOPSY, Bilateral CLINICAL INFORMATION: -Right breast linear shadowing abnormality 10:00 axis for which ultrasound-guided biopsy was recommended, with clip placement and correlation with postbiopsy mammography for assessment of distortion right breast. 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 COMPARISON: None. PROCEDURAL DETAILS: The details of the procedure, as well as the risks, benefits, and alternatives to the procedure were explained to the patient in detail and all of her questions were answered, after which written informed consent was obtained. Site and side were confirmed. RIGHT breast, 10:00 axis biopsy: sonography revealed an irregular linear region of abnormal shadowing in the 10:00 axis right breast, 5 cm from the nipple. A time-out was performed, the lesion intended for biopsy was targeted, and the skin of the overlying right breast was then marked, prepped and draped in the usual sterile fashion. Using sonographic guidance, sterile technique, and 1% lidocaine without epinephrine for local anesthesia, multiple core biopsies were obtained through the targeted area with a 14G spring loaded Sertera core biopsy device. There was real-time confirmation of appropriate needle passage. Sampling was documented. At the completion of tissue sampling, a single barrel shaped metallic clip was deposited at the biopsy site. LEFT breast, 2:00 axis hypoechoic mass biopsy: sonography revealed a lobular hypoechoic mass with good through transmission at the 2:00 axis, 5 cm from the nipple, measuring approximately 8 x 6 x 8 mm. A time-out was performed, the lesion intended for biopsy was targeted, and the skin of the left breast was then marked, prepped and draped in the usual sterile fashion. Using sonographic guidance, sterile technique, and 1% lidocaine without epinephrine for local anesthesia, multiple core biopsies were obtained through the targeted area with a 14G spring loaded Sertera core biopsy device. There was real-time confirmation of appropriate needle passage. Of note, the majority of the lesion collapsed after the first biopsy pass, suggesting the lesion was a complicated cyst. Sampling was documented. At the completion of tissue sampling, a single open coil-shaped metallic clip was deposited at the biopsy site. LEFT breast, 3:00 axis hypoechoic mass biopsy: sonography revealed a lobular hypoechoic mass at the 3:00 axis, 6 cm from the nipple, measuring 1.9 x 1.1 x 1.5 cm. A time-out was performed, the lesion intended for biopsy was targeted, and the skin of the left breast was then marked, prepped and draped in the usual sterile fashion. Using sonographic guidance, sterile technique, and 1% lidocaine without epinephrine for local anesthesia, multiple core biopsies were obtained through the targeted area with a 14G spring loaded [employer] core biopsy device. There was real-time confirmation of appropriate needle passage. Sampling was documented. At the completion of tissue sampling, a single butterfly-shaped metallic clip was deposited at the biopsy site. There was no evidence of immediate complication. SPECIMEN: 3 well formed core samples were obtained from each site. DIGITAL POST-PROCEDURE MAMMOGRAPHY: Breast density: The tissue is heterogeneously dense which may obscure small masses. BI-RADS version 5, category C. There are no new mammographic findings demonstrated. The postprocedure 2-view direct digital RIGHT mammogram reveals discordance of the 10:00 region biopsied with the initially targeted area of architectural distortion, which appears to reside approximately 2:00 axis right breast. This was communicated to the patient, and the 2:00 axis distortion will require stereotactic sampling. No hematoma. The postprocedure 2 view direct digital left mammogram reveals both the 2:00 and 3:00 axis biopsy clips in expected, accurate position. No evidence of clip migration or hematoma. The patient tolerated the procedure well and, after assuring adequate hemostasis, was discharged in good condition after reviewing postbiopsy breast care instructions. Final pathology results are pending. US/ breast ndl core biopsy LT IMPRESSION: 1. No immediate complication from 1 site ultrasound-guided percutaneous biopsy RIGHT breast. Of note, there was discordance of the right breast biopsied lesion with the initially targeted area of architectural distortion. This was discussed with the patient after the procedure, and stereotactic biopsy of the 2:00 axis distortion is recommended and will be scheduled. 2. No immediate complication from 2 site ultrasound-guided percutaneous biopsy LEFT breast. The 2:00 axis lobular mass essentially collapsed after the first biopsy pass, suggestive of a complicated cyst. No complication from the 3:00 axis biopsy of the larger lobulated mass measuring 1.9 cm. 3. The 2-view direct digital postprocedure LEFT breast mammogram reveals satisfactory and accurate positioning of both of the biopsy clips. 4. Final pathology results are pending. A separate report with final recommendations will be issued once these results are made available.
[2023-09-15] MEDS: Lidocaine HCl 1 % 20 ML VIAL 18 ML SUBCUT (11:07)
[2023-09-15] MEDS: Sodium Bicarbonate 8.4% 50 MEQ/50 ML VIAL SUBCUT (11:08)
== END 2023-09-15 08:52 | disposition home or self-care (01) ==
LOC: HO.MAMMO 08:51
PROVIDERS: PCP Internal Medicine; Visit Provider Surgery
DX: N63.11 Unspecified lump in the right breast, upper outer quadrant (principal); N63.25 Unspecified lump in the left breast, overlapping quadrants
CPT/HCPCS: 19083; 19084; 77062; 77066; 88305; A4648; C1894

== ENCOUNTER → 2023-09-15 09:30 | Outpatient (BNV) | payer BC, SELFPAY | PROVIDERS: PCP Internal Medicine; Visit Provider Radiology Diagnostic Radiology | DX: N64.89 Other specified disorders of breast (principal); N60.22 Fibroadenosis of left breast | CPT/HCPCS: 19083; 19084 ==

== ENCOUNTER 2023-09-22 08:39 | Outpatient (AMB) | payer BC, SELFPAY ==
--- NOTE | 2023-09-22 08:40 | MHC.OFFVIS ---
Intake Vital Signs 09/22/23 08:58 Height 5 ft 2 in Weight 146 lb 8 oz BMI 26.8 BP 117/61 Blood Pressure Location Lt brachial Position Sitting Pulse 71 Intake Visit Reasons: s/p rt breast us guided bx & left breast 2 areas Intake Note: This patient presents for a follow-up assessment for breast biopsy results. Pt c/o: denies any concerns after bx, is scheduled to go back today to have another area examine. Equal Opportunity Officer Required: No Accompanied by: Family/Other Allergies No Known Allergies Allergy (Verified 09/22/23 08:58) Medication List - Last Reconciled 09/22/23 by Mane Valdez MD calcium carbonate 500 mg PO DAILY calcium citrate-vitamin D3 250 mg-5 mcg (200 unit) (Citracal Regular) 1 tab PO TID HPI s/p rt breast us guided bx & left breast 2 areas HPI Details She had undergone ultrasound biopsy of a right breast mass as well as to says the left breast last week. She tolerated procedure well. She denies any complaints with regards to the biopsy sites. She is here to discuss the path report. [facility] Medical History Left breast mass Breast mass, right Hyperparathyroidism Hypovitaminosis D Hypercalcemia Family history of diabetes mellitus Surgical History History of parathyroid surgery History of removal of calculus of renal pelvis through percutaneous nephrostomy H/O tubal ligation Family History Mother Diabetes Father Heart disease Social History Household Members: Family Housing: House Alcohol intake: never Patient Tobacco Use Status: Never used Tobacco e-Cigarette/Vaping Use: Never Used Second Hand Smoke Exposure: No service: No Current occupational status: employed Current occupational exposures/hazards: No Cognitive needs: No Hearing needs: No Vision needs: No Female Reproductive History Menstrual Age of Menarche: 13 Review of Systems Const Denies chills and Denies fever(s) Card Denies chest pain, Denies dyspnea and Denies dyspnea on exertion Resp Denies cough, Denies dyspnea and Denies dyspnea on exertion GI Denies hematochezia and Denies change in bowel habits Denies hematuria Musc Denies back pain and Denies limited range of motion Neuro Denies focal weakness and Denies convulsions Psych Denies depression and Denies mood swings Physical Exam Const General: comfortable and no acute distress Chest Other: Biopsy sites clean without any hematoma or cellulitis Resp Effort & Inspection: normal respiratory effort Assessment & Plan Assessment & Plan (1) Left breast mass: Code(s): N63.20 - Unspecified lump in the left breast, unspecified quadrant Plan: She had undergone ultrasound biopsy of a right breast mass as well as 2 masses on the left breast. 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 The left breast mass at 03:00 o'clock position was of these pathologies. She is to continue with regular screening mammograms. She can otherwise follow up on a p.r.n. basis. 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 She understands the benign nature of this pathology. The radiologist however feels that was a different area of distortion seen on mammogram so a stereotactic biopsy is being done for this area. I will review the path report and discuss this with her as well. Coding Level of Care Code Est Pt Level 3 (51994) Diagnoses Left breast mass N63.20 Breast mass, right N63.10
[2023-09-22 08:58] VITALS: BP 117/61; PULSE 71; BMI 26.8
== END 2023-09-22 09:09 | disposition home or self-care (01) ==
PROVIDERS: PCP Internal Medicine; Visit Provider Surgery
DX: N63.20 Unspecified lump in the left breast, unspecified quadrant (principal); N63.10 Unspecified lump in the right breast, unspecified quadrant
CPT/HCPCS: 99213

== ENCOUNTER 2023-09-22 09:11 | Outpatient (REF) | payer BC, SELFPAY ==
--- NOTE | ~2023-09-22 | MM_ITS ---
EXAMINATION: STEREOTACTIC TOMOSYNTHESIS-GUIDED VACUUM-ASSISTED BREAST BIOPSY, RIGHT SPECIMEN RADIOGRAPH, RIGHT POST PROCEDURE DIGITAL MAMMOGRAM, RIGHT CLINICAL INFORMATION: Discordant ultrasound-guided biopsy right breast. Distortion at 2:00 axis medial right breast was not sampled. Plan for stereotactic sampling. COMPARISON: 09/15/2023 mammography and ultrasound-guided biopsy. 09/07/2023 mammography and diagnostic bilateral breast ultrasound. 07/15/2023 screening breast mammography. TECHNIQUE/PROCEDURE: Informed consent was obtained from the patient after discussion of the benefits, risks, and alternatives to biopsy today. Patient appeared to understand. Gave opportunity for questions. Patient signed consent form. BIOPSY TABLE: [employer] Affirm Prone Biopsy System. LESION: Architectural distortion, 2:00 axis. LOCAL ANESTHESIA: 1 mL 1% lidocaine; 8 mL 1% lidocaine with epinephrine. DERMATOTOMY: Single skin pinky dermatotomy performed. NEEDLE: [employer] Eviva 9-gauge vacuum assisted core biopsy device. APPROACH: medial lateral. TARGETING: Combination of digital breast tomosynthesis and stereotactic digital mammography used for targeting. CORES: 7. CLIP: [employer] SecurMark Buckle-shaped marker. SPECIMEN RADIOGRAPH: Not required. POST PROCEDURE UNILATERAL DIGITAL MAMMOGRAM: The post biopsy mammogram is performed in separate room using separate digital mammography equipment from the biopsy procedure. CC and ML views are obtained. The breasts are heterogeneously dense, which may obscure small masses (breast composition category: c). The buckle-shaped biopsy clip has migrated from tissue rebound approximately 0.9 cm superior and 1.0 cm medial to the distortion. On the immediate post clip tomographic biopsy image, the area appears to have been sampled, and the buckle-shaped clip is in good position. Migration of the clip is secondary to tissue rebound. There is no evidence of hematoma. The patient tolerated the procedure well. No immediate complications. Home instructions reviewed with the patient. Final pathology results are pending. MM/MM stereotactic biopsy RT IMPRESSION: 1. Digital tomosynthesis-guided core biopsy right breast 2:00 distortion with clip placement. 2. Specimen radiograph taken and post procedure mammogram. The buckle-shaped biopsy clip has migrated approximately 0.9 cm superior 1.0 cm medial to the sampled distortion, presumably from tissue rebound. 3. Final pathology results pending. An addendum report will be issued.
[2023-09-22] MEDS: Sodium Bicarbonate 8.4% 50 MEQ/50 ML VIAL SUBCUT (10:46)
[2023-09-22] MEDS: Lidocaine HCl 1%/Epi 1:100,000 10 ML VIAL 17 ML SUBCUT (10:50)
[2023-09-22] MEDS: Lidocaine HCl 1 % 20 ML VIAL SUBCUT (10:51)
== END 2023-09-22 09:12 | disposition home or self-care (01) ==
LOC: HO.MAMMO 09:11
PROVIDERS: PCP Internal Medicine; Visit Provider Surgery
DX: N63.12 Unspecified lump in the right breast, upper inner quadrant (principal)
CPT/HCPCS: 19081; 88305; 88341; 88342; A4648

== ENCOUNTER → 2023-09-22 10:00 | Outpatient (BNV) | payer BC, SELFPAY | PROVIDERS: PCP Internal Medicine; Visit Provider Radiology Diagnostic Radiology | DX: N60.81 Other benign mammary dysplasias of right breast (principal) | CPT/HCPCS: 19081 ==

== ENCOUNTER 2024-05-20 08:58 | Outpatient (REF) | payer BC, SELFPAY ==
[2024-05-20 10:22] LABS: Alanine Aminotransferase 12 U/L (0-31); Albumin Level 4.1 g/dL (3.5-5.0); Alkaline Phosphatase 53 U/L (39-117); Anion Gap 12 (12-20); Aspartate Amino Transferase 21 U/L (5-31); Bilirubin Total 0.6 mg/dL (0.0-1.0); Blood Urea Nitrogen 11 mg/dL (9-16); Calcium 8.6 mg/dL (8.4-10.2); Carbon Dioxide 21 mmol/L (22-29); Chloride 110 mmol/L (96-108); Cholesterol 161 mg/dL (<200); Estimated Glomerular Filt Rate > 60; Glucose Fasting 100 mg/dL (60-99); HDL Cholesterol 48 mg/dL (>40); LDL Cholesterol Calculated 101 mg/dL (<100); Sodium 139 mmol/L (135-145); Total Protein 7.4 g/dL (6.5-8.0); Triglycerides 61 mg/dL (<150)
== END 2024-05-20 08:59 | disposition home or self-care (01) ==
LOC: HO.LAB 08:58
PROVIDERS: PCP Internal Medicine; Visit Provider Internal Medicine
DX: Z00.00 Encounter for general adult medical examination without abnormal findings (principal)
CPT/HCPCS: 36415; 80053; 80061

== ENCOUNTER 2024-06-14 17:11 | Outpatient (AMB) | payer BC, SELFPAY ==
--- NOTE | 2024-06-14 17:19 | A.OFFPC_ITS ---
Vital Signs 06/14/24 17:24 Height 5 ft 2 in Weight 144 lb BMI 26.3 BP 118/72 Blood Pressure Location Lt brachial Position Sitting Intake Visit Reasons: pe Intake Note: Patient here for a physical exam Math And Science Instructor Required: No Accompanied by: Daughter Allergies No Known Allergies Allergy (Verified 06/14/24 17:49) Medication List - Last Reconciled 06/14/24 by Leanne Castrejon MD No Known Home Meds Tobacco use date assessed: 06/14/24 Dental Screening Dental Screen Date: 06/14/24 Did you have a dental visit in the last 12 months?: Yes Did you have a dental problem in the last 6 months where you did not have access to dental care?: No Was dental information given to patient?: Patient has dentist HPI HPI Comments History of Present Illness Details The patient is a 43-year-old female presenting for her physical exam with right elbow pain. She reports significant pain in the right elbow, although not as severe as previous episodes. The pain began recently, localized in the right elbow with no specific inciting event mentioned. The severity of the pain has prompted the patient to seek care, as it interferes with daily activities. There are no reported injuries or external trauma to the area. The patient has not indicated any previous treatment for this current episode of elbow pain. She states no associated numbness, tingling, or radiation of pain. There is no mention of [id number] medications or home remedies attempted to alleviate the pain. Additionally, she underwent a benign breast biopsy after a mammogram earlier this year. The patient has a history of nephrolithiasis, having undergone a nephrostomy for the removal of a renal calculus. She has been sterilized through tubal ligation to prevent future pregnancies. The patient has a family history of diabetes mellitus in her mother and heart disease in her father. No current medications are being taken, and she has no allergies to medications. - Mammogram completed this year; benign result. - Papanicolaou test in 2020; HPV negativ e, next due in five years. - Laboratory results normal with glucose at 100 mg/dL. - Up-to-date on vaccinations; Tdap admin istered in 2014, flu vaccine requested today. [facility] Medical History Left breast mass Breast mass, right Hyperparathyroidism Hypovitaminosis D Hypercalcemia Family history of diabetes mellitus Surgical History History of parathyroid surgery History of removal of calculus of renal pelvis through percutaneous nephrostomy H/O tubal ligation Family History Mother Diabetes Father Heart disease Social History Household Members: Family Housing: House Alcohol intake: never Patient Tobacco Use Status: Never used Tobacco e-Cigarette/Vaping Use: Never Used Second Hand Smoke Exposure: No service: No Current occupational status: employed Current occupational exposures/hazards: No Cognitive needs: No Hearing needs: No Vision needs: No Female Reproductive History Menstrual Age of Menarche: 13 Questionnaire PHQ-9 Over the last 2 weeks, how often have you been bothered by any of the following problems? 1. Little interest or pleasure in doing things: not at all 2. Feeling down, depressed, or hopeless: not at all 3. Trouble falling or staying asleep, or sleeping too much: not at all 4. Feeling tired or having little energy: not at all 5. Poor appetite or overeating: not at all 6. Feeling bad about yourself - or that you are a failure or have let yourself or your family down: not at all 7. Trouble concentrating on things, such as reading the newspaper or watching television: not at all 8. Moving or speaking so slowly that other people could have noticed. Or the opposite - being so fidgety or restless that you have been moving around a lot more than usual: not at all 9. Thoughts that you would be better off or of hurting yourself in some way: not at all Total score: 0 Depression Screening Interpretation: Negative Depression Screening Done: Yes 76251 - PHQ-9 Billing: Yes Source: Developed by Drs. Hugo Sanches, Beckie Wiggins, Jose Daniel Barry and colleagues, with an educational sunshine from [employer]. Thrive Questionnaire Date Thrive assessed: 06/14/24 I am a: Patient What is your living situation today?: I have a steady place to live Within the past 12 months, did the food you bought not last and you didn't have the money to get more?: Often true Within the past 12 months, did you worry whether your food would run out before you got money to buy more?: Never true Do you have trouble paying for medicines?: No Do you have trouble getting transportation to medical appointments?: No Do you have trouble paying your heating and electricity bill?: No Do you have trouble taking care of your child, family member or friend?: No Do you have trouble with day-to-day activities such as bathing, preparing meals, shopping, managing finances, etc.?: No Are you currently unemployed and looking for a job?: No Are you interested in more education?: Yes Please select the resources that you would like help with: None Currently or been in a relationship where the following occur: No concerns reported THRIVE Score: 1 AUDIT C Alcohol Use Questionnaire (AUDIT-C) 1. How often do you have a drink containing alcohol?: Never Total Score: 0 Score Reviewed/Action Taken: No KAVITA-7 AMB Questionnaire KAVITA-7 Date KAVITA - 7 assessed: 06/14/24 Feeling nervous, anxious, or on edge: 0 = Not at all Not being able to stop or control worryin = Not at all Worrying too much about different things: 0 = Not at all Trouble relaxin = Not at all Being so restless that it is hard to sit still: 0 = Not at all Becoming easily annoyed or irritable: 0 = Not at all Feeling afraid as if something awful might happen: 0 = Not at all Total KAVITA-7 score (0-4 normal; 5-9 mild; 10-14 moderate; 15-21 severe): 0 Source: Developed by Drs. Hugo Sanches, Beckie Wiggins, Jose Daniel Barry and colleagues, with an educational sunshine from [employer]. KAVITA-7 Assessment Billing KAVITA-7 Assessment Tool: KAVITA-7 Assessment 60782 Review of Systems Const All systems reviewed & are unremarkable except as noted in HPI and below Card Denies chest pain at rest, Denies chest pain with activity, Denies edema, Denies irregular heart rhythm, Denies claudication, Denies dyspnea, Denies dyspnea on exertion, Denies orthopnea, Denies paroxysmal nocturnal dyspnea and Denies slow heart rate Resp Denies cough, Denies dyspnea and Denies dyspnea on exertion GI Denies abdominal pain, Denies change in bowel habits, Denies excessive flatus, Denies nausea and Denies vomiting Denies urinary incontinence, Denies urinary hesitancy and Denies urinary urgency Musc Denies abnormal gait, Denies atrophy, Denies deformity and Denies limited range of motion Skin/Breast Denies bleeding lesions, Denies changing lesions and Denies rash Neuro Denies abnormal gait and Denies lack of coordination Physical exam (Primary Care) Vital Signs: Last Vital Signs BP 118/72 06/14/24 17:24 BMI result Body Mass Index 26.3 Tobacco/Smoking Status: Tobacco use Status Tobacco use date assessed 06/14/24 06/14/24 17:31 Patient Tobacco Use Status Never used Tobacco 06/14/24 17:19 Tobacco use type 05/25/22 09:09 e-Cigarette/Vaping Use Never Used 06/14/24 17:19 PHQ-9: PHQ-9 Score PHQ-9: Total score 0 06/14/24 18:01 Depression Screening Interpretation: Negative Thrive Assessment: Date of Thrive Assessment Date Thrive assessed 06/14/24 06/14/24 17:21 Currently or been in a relationship where the following occur: No concerns reported [facility] Head: Yes normal to inspection, Yes normocephalic and Yes atraumatic Ears: external ears normal Eyes General: appearance normal, both eyes and all related structures Eyelids: Yes eyelids normal Conjunctivae: conjunctivae normal Neck Neck: Yes normal visual inspection and Yes supple Resp Effort & Inspection: normal respiratory effort Auscultation: clear to auscultation bilaterally Cardio Jugular venous distension: no JVD Rate: regular rate Rhythm: regular rhythm Heart sounds: S1 normal heart sound present and S2 normal heart sound present GI Inspection: Yes normal to inspection Palpation (GI): Soft to palpation and nontender Auscultation: normal bowel sounds Skin General skin exam: no rashes or lesions noted Neuro General: no focal motor deficits Extrem General: Yes full ROM Psych Appearance: grossly normal Office Procedures Flu Questionnaire Does the patient have a severe egg allergy?: No Does the patient have severe life threatening allergies?: No Does the patient have a fever or illness today?: No Has the patient ever had Guillain-Backus Syndrome?: No Has the patient ever had any past reaction to a flu shot?: No Immunizations Fluarix Triv [id number] (PF) 45 mcg (15 mcg x 3)/0.5 mL IM syringe Performing Provider: Leanne Castrejon MD [facility] Administered by: EJ Marley on 06/14/24 18:01 Dose Route Admin Location Dispensed Lot Number Expiration Date [place] Drying Machine Back Tender 0.5 mL IM Left Deltoid 0.5 mL [id number] 01/08/25 [id number] [employer] VIS Given Date VIS Provided VIS Publication Date 06/14/24 Single Vaccine 21 Eligibility Eligibility Date Funding Source Not [facility] Eligible 06/14/24 Private Coding Level of Care Code Est Pt Level 3 (60980) Est Pt Prev Care 40-64y(89326) Diagnoses Physical exam Z00.00 Right elbow pain M25.521 Additional Codes KAVITA-7 Assessment Billing - KAVITA-7 Assessment Tool: KAVITA-7 Assessment 97448 ([id number]) PHQ-9 - 96692 - PHQ-9 Billing: Yes ([id number]) Time Spent (min) 33 Assessment & Plan Assessment & Plan (1) Physical exam: Code(s): Z00.00 - Encounter for general adult medical examination without abnormal findings Category: Medical (2) Right elbow pain: Code(s): M25.521 - Pain in right elbow Category: Medical Plan - For right elbow pain: Plan to refer for occupational therapy. Consideration of an orthopedic consultation if symptoms persist. Monitor for any worsening of symptoms or new symptoms such as numbness or tingling. - Continue routine health maintenance with annual physical exams and scheduled screenings. - Administer flu vaccine as requested. - Educate about the importance of future colonoscopy screening given age and standard screening guidelines. Patient was informed and verbally consented to the use of an ambient scribe for clinic note documentation during this visit. I discussed with the patient the likely causes of her elbow pain, including potential tendonitis or repetitive strain injury, and the plan to refer her to occupational therapy for evaluation and management. We emphasized the importance of therapy in managing and potentially resolving the discomfort. Regarding her b enign breast biopsy and recent screenings, we reviewed the results and confirmed the benign nature of the findings. We agreed to remain vigilant with her follow- up screenings and discussed the timeline for her next planned Papanicolaou test. We also touched on her future need for a colonoscopy due to her age and standard screening practices. The patient expressed understanding of the plan and agreed with the scheduled flu vaccination today. Orders: Orders XR elbow RT 2V Today M25.521 - Pain in right elbow OT Evaluation and Treatment Today M25.521 - Pain in right elbow Influenza [id number] Immunization Today Z23 - Encounter for immunization Referrals Orthopedics Referral M25.521 - Pain in right elbow Patient Instructions: - Follow up with occupational therapy for right elbow assessment. - Notify me if elbow symptoms worsen or new symptoms develop. - Maintain routine health check-ups. - Stay updated with recommended screenings. - Receive today's flu vaccine as planned. - Consider future colonoscopy screening.
[2024-06-14 17:24] VITALS: BP 118/72; BMI 26.3
--- OUTSIDE RECORDS SUMMARY | 2024-06-20 21:46 | XMS_ITS ---
Author Name [facility] Organization Unknown History of Medication Use Medication Directions Dispensed Refills Start Date End Date Stat loratadine-pseudoephe drine (CLARITIN-D 12-hour) 5-120 MG per 12 hr tablet Take 1 tablet by mouth 2 (two) times a day. 08/03/2023 active Calcium 200 MG Tab Take by mouth. 08/03/2023 active fluticasone (FloNASE) 50 mcg/spray nasal spray 1 spray into each nostril daily. 08/03/2023 active Problems Problem Status Onset Date Problem Type Date of Resoluti on Source Viral URI active EncounterDiagnosisAct HHCCT Dysfunction of right eustachian tube active EncounterDiagnosisAct HHC CT
== END 2024-06-14 17:52 | disposition home or self-care (01) ==
PROVIDERS: PCP Internal Medicine; Visit Provider Internal Medicine
DX: Z00.00 Encounter for general adult medical examination without abnormal findings (principal); M25.521 Pain in right elbow

== ENCOUNTER → 2024-06-14 17:11 | Outpatient (BNVA) | payer BC, SELFPAY | PROVIDERS: PCP Internal Medicine; Visit Provider Internal Medicine | DX: Z00.00 Encounter for general adult medical examination without abnormal findings (principal); Z23 Encounter for immunization; M25.521 Pain in right elbow | CPT/HCPCS: 90471; 90656; 96127 ==

== ENCOUNTER 2024-06-17 10:36 | Outpatient (REF) | payer BC, SELFPAY | END 2024-06-17 10:37 | disposition home or self-care (01) | LOC: HO.XRAY 10:36 | PROVIDERS: PCP Internal Medicine; Visit Provider Internal Medicine | DX: M25.521 Pain in right elbow (principal) | CPT/HCPCS: 73070 ==

== ENCOUNTER 2024-08-07 13:00 | Outpatient (REF) | payer BC, SELFPAY ==
--- OUTSIDE RECORDS SUMMARY | 2024-08-07 17:37 | XMS_ITS | Clinical Summary ---
Author Organization [facility] Address [address] [place] [address] Care Team Providers Care Coffee Blender Name Role Phone Leanne Lopez MD Primary Care Provider [phone] Allergies No known active allergies Medications Medication Sig Dispensed Refills Start Date End Date Status Calcium 200 MG Tab Take by mouth. Ac tive loratadine-pseudoephe drine (CLARITIN-D 12-hour) 5-120 MG per 12 hr tabletIndications:Dys function of right eustachian tube Take 1 tablet by mouth 2 (two) times a day. 60 tablet 08/01/2023 Active fluticasone (FloNASE) 50 mcg/spray nasal sprayIndications:Dysf unction of right eustachian tube 1 spray into each nostril daily. 1 each 08/01/2023 Active Social History Tobacco Use Types Packs/Day Years Used Date Smoking Tobacco: Never Smokeless Tobacco: Never Sex and Gender Information Value Date Recorded Sex Assigned at Not on file Gender Identity Not on file Sexual Orientation Not on file Last Filed Vital Signs Vital Sign Reading Time Taken Comments Blood Pressure 111/75 08/01/2023 1:33 PM EST Pulse 69 08/01/2023 1:33 PM EST Temperature 36.8 ??C (98.3 ??F) 08/01/2023 1:33 PM ES T Respiratory Rate 17 08/01/2023 1:33 PM EST Oxygen Saturation 100% 08/01/2023 1:33 PM EST Inhaled Oxygen Concentration - - Weight - - Height - - Body Mass Index - - Plan of Treatment Health Maintenance Due Date Last Done Comments Hepatitis C Virus Screening 1982 HIV Screening 09/14/1995 DTaP/Tdap/Td Vaccines (1 - Tdap) 2001 Hepatitis B Vaccines (1 of 3 - 19+ 3-dose series) 2001 Pap Smear (Ages 21-65) 09/14/2003 Mammogram 2022 Influenza Vaccine 02/10/2024 05/20/2021 COVID-19 Vaccine (2023-2 5 season) 2024 09/23/2020, 08/26/2020 HPV Vaccines Aged Out No longer eligi ble based on patient's age to complete this topic Pneumococcal Vaccine: Pediatric (0-5 Years) and At-Risk Patients (6 to 49 Years) Aged Out No longer eligible b ased on patient's age to complete this topic Care Teams Coffee Blender Relationship Specialty Start Date End Date Leanne Lopez MD [address] [place] [address] PCP - General Family Medicine 08/01/23
== END 2024-08-07 13:01 | disposition home or self-care (01) ==
LOC: HO.MAMMO 13:00
PROVIDERS: PCP Internal Medicine; Visit Provider Internal Medicine
DX: Z12.31 Encounter for screening mammogram for malignant neoplasm of breast (principal)
CPT/HCPCS: 77063; 77067

== ENCOUNTER → 2024-08-07 13:15 | Outpatient (BNV) | payer BC, SELFPAY | PROVIDERS: PCP Internal Medicine; Visit Provider Internal Medicine | DX: Z12.31 Encounter for screening mammogram for malignant neoplasm of breast (principal) | CPT/HCPCS: 77063; 77067 ==

== ENCOUNTER 2024-08-16 15:05 | Outpatient (AMB) | payer BC, SELFPAY ==
--- NOTE | 2024-08-16 15:12 | A.OFFVIS_ITS ---
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 Patient was seen by her PCP who ordered OT. Patient reports off and on pain for a couple of months. No hx of injury. She states that her pain is more focused on the lateral aspect of the elbow. Patient expresses that she is not able to fully extend her arm and her pain is worse when she is bending her arm and pulling. Patient has tried and failed Tylenol, NSAIDs and Topical Cream. Medical Staff Physician Services: Medical Staff Physician Present Medical Staff Physician Name: kylee [id number] Allergies No Known Allergies Allergy (Verified 08/16/24 15:15) Medication List - Last Reconciled 08/16/24 by Uziel Esquivel PA-C No Known Home Meds HPI HPI COUNSELING DIRECTOR-Pain in right elbow: Details: 43-year-old female presents to the office today for pain in the right elbow. She denies injury. She states the pain is located along the lateral aspect of the elbow and is irritated with lifting pushing pulling or carrying activities. She has had no treatment to date. [facility] Medical History Left breast mass Breast mass, right Hyperparathyroidism Hypovitaminosis D Hypercalcemia Family history of diabetes mellitus Surgical History History of parathyroid surgery History of removal of calculus of renal pelvis through percutaneous nephrostomy H/O tubal ligation Family History Mother Diabetes Father Heart disease Social History (Updated 08/16/24 @ 15:16 by Ariel Hu) Household Members: Family Housing: House Alcohol intake: never Patient Tobacco Use Status: Never used Tobacco e-Cigarette/Vaping Use: Never Used Second Hand Smoke Exposure: No service: No Current occupational status: employed Current occupation: DayCare/ right hand dominant Current occupational exposures/hazards: No Cognitive needs: No Hearing needs: No Vision needs: No Female Reproductive History Menstrual Age of Menarche: 13 Review of Systems Const All systems reviewed & are unremarkable except as noted in HPI and below Physical Exam Vital Signs: BMI result Body Mass Index 26.3 Const General: cooperative and no acute distress Orientation/consciousness: patient oriented x3 Resp Effort & Inspection: normal respiratory effort and able to speak in complete sentences Cardio Peripheral pulses: Peripheral pulses 2+ throughout Neuro General: patient oriented x3 Extrem Other: Right Elbow skin intact. No erythema or swelling. ROM full without pain. Tenderness over the lateral epicondyle and pain with resisted wrist extension. NVI. Results Reviewed Results Reviewed: XR elbow RT 2V IMPRESSION: Normal right elbow. Assessment & Plan Assessment & Plan (1) Lateral dislocation of right elbow: Code(s): S53.144A - Lateral dislocation of right ulnohumeral joint, initial encounter Category: Medical Plan: We discussed options which include PT, NSAIDs and injections. She will defer on the injection today and proceed with PT and NSAIDs. If symptoms persist she will contact me for an injection, otherwise, prn. Orders: Orders OT Evaluation and Treatment Today S53.144A - Lateral dislocation of right ulnohumeral joint, initial encounter Coding Level of Care Code New Pt Level 3 (82844) Complex EM visit Add On G2211 Diagnoses Lateral dislocation of right elbow S53.144A
[2024-08-16 15:16] VITALS: BMI 26.3
--- OUTSIDE RECORDS SUMMARY | 2024-08-16 16:06 | XMS_ITS | Clinical Summary ---
Author Organization [facility] Address [address] [place] [address] Care Team Providers Care Barker Peeler Name Role Phone Sheree Chavez MD Primary Care Provider Yuridia machado Allergies No known active allergies Medications No known medications Immunizations Name Administration Dates Next Due Tdap 12/24/2014 Family History Relation Name Status Comments Father Alive hx [place] at age 40 but not sure, htn Mother Alive dm, Social History Tobacco Use Types Packs/Day Years Used Date Smoking Tobacco: Never Alcohol Use Standard Drinks/Week Comments No 0 (1 standard drink = 0.6 oz pur e alcohol) Sex Assigned at Date Recorded Not on file Last Filed Vital Signs Vital Sign Reading Time Taken Comments Blood Pressure 102/62 12/24/2014 9:01 AM EDT Pulse 64 12/24/2014 9:01 AM EDT Temperature 36.9 ??C (98.5 ??F) 12/24/2014 9:01 AM ED T Respiratory Rate 14 12/24/2014 9:01 AM EDT Oxygen Saturation - - Inhaled Oxygen Concentration - - Weight 58.1 kg (128 lb) 12/24/2014 9:01 AM EDT Height 157.5 cm (5' 2 ) 12/24/2014 9:01 AM EDT Body Mass Index 23.41 12/24/2014 9:01 AM EDT Plan of Treatment Health Maintenance Due Date Last Done Comments Covid-19 Vaccine (#1) 03/16/1983 TOBACCO CHECK/ADVISE 2000 CHOLESTEROL SCREENING 2002 CERVICAL CANCER SCREENING 06/25/20172013 (External Completion of test per patient (Patient reports normal results)), 03/28/2007 BASELINE HEALTH EXAM 40-64 2022 12/24/2014 MAMMOGRAM 2022 INFLUENZA (#1) 2024 BMI CHECK/ADVISE 07/12/2024 DTAP/TDAP/TD (2 - Td or Tdap) 12/24/2024 12/24/2014 PNEUMOCOCCAL VACCINE FOR HIG H RISK PATIENTS (#1) 09/14/2047 Care Teams Barker Peeler Relationship Specialty Start Date End Date Sheree Chavez MD PCP - General Internal Medicine 09/17/14
--- OUTSIDE RECORDS SUMMARY | 2024-08-16 16:06 | XMS_ITS | Clinical Summary ---
Author Organization [facility] Address [address] [place] [address] Care Team Providers Care Bundler Seasonal Greenery Name Role Phone Leanne Lopez MD Primary Care Provider [phone] Allergies No known active allergies Medications Medication [...] age to complete this topic Care Teams Bundler Seasonal Greenery Relationship Specialty Start Date End Date Leanne Lopez MD [address] [place] [address] PCP - General Family Medicine 08/01/23
== END 2024-08-16 15:36 | disposition home or self-care (01) ==
PROVIDERS: PCP Internal Medicine; Visit Provider Physician Assistant
DX: S53.144A Lateral dislocation of right ulnohumeral joint, initial encounter (principal)
CPT/HCPCS: 99203

== ENCOUNTER 2024-11-21 09:34 | Outpatient (AMB) | payer BC, SELFPAY ==
[2024-11-21 09:38] VITALS: BP 110/68; PULSE 75; O2SAT 98; BMI 25.2
--- NOTE | 2024-11-21 09:38 | A.OFFPC_ITS ---
Vital Signs 11/21/24 09:38 Height 5 ft 2 in Weight 138 lb BMI 25.2 BP 110/68 Blood Pressure Location Lt brachial Position Sitting Pulse 75 Pulse Source Pulse Oximeter Pulse Oximetry (%) 98 Oxygen Delivery Method Room Air Intake Visit Reasons: back pain Allergies No Known Allergies Allergy (Verified 11/21/24 09:39) Medication List - Last Reconciled 11/21/24 by Vinayak Fu MD No Known Home Meds Tobacco use date assessed: 11/21/24 Dental Screening Dental Screen Date: 11/21/24 Did you have a dental visit in the last 12 months?: Yes Did you have a dental problem in the last 6 months where you did not have access to dental care?: No Was dental information given to patient?: Patient has dentist [facility] Medical History (Updated 11/21/24 @ 10:01 by Vinayak Fu MD) Left breast mass Breast mass, right Hyperparathyroidism Hypovitaminosis D Hypercalcemia Family history of diabetes mellitus Surgical History (Updated 11/21/24 @ 09:54 by Vinayak Fu MD) History of parathyroid surgery History of removal of calculus of renal pelvis through percutaneous nephrostomy H/O tubal ligation Family History Mother Diabetes Father Heart disease Social History (Updated 08/16/24 @ 15:16 by Ariel Hu) Household Members: Family Housing: House Alcohol intake: never Patient Tobacco Use Status: Never used Tobacco Tobacco use type: Cigarette e-Cigarette/Vaping Use: Never Used Second Hand Smoke Exposure: No service: No Current occupational status: employed Current occupation: DayCare/ right hand dominant Current occupational exposures/hazards: No Cognitive needs: No Hearing needs: No Vision needs: No Female Reproductive History Menstrual Age of Menarche: 13 Questionnaire PHQ-9 Over the last 2 weeks, how often have you been bothered by any of the following problems? 1. Little interest or pleasure in doing things: not at all 2. Feeling down, depressed, or hopeless: not at all 3. Trouble falling or staying asleep, or sleeping too much: not at all 4. Feeling tired or having little energy: not at all 5. Poor appetite or overeating: not at all 6. Feeling bad about yourself - or that you are a failure or have let yourself or your family down: not at all 7. Trouble concentrating on things, such as reading the newspaper or watching television: not at all 8. Moving or speaking so slowly that other people could have noticed. Or the opposite - being so fidgety or restless that you have been moving around a lot more than usual: not at all 9. Thoughts that you would be better off or of hurting yourself in some way: not at all Total score: 0 Depression Screening Interpretation: Negative Depression Screening Done: Yes Source: Developed by Drs. Hugo Sanches, Beckie Wiggins, Jose Daniel Barry and colleagues, with an educational sunshine from [employer]. Thrive Questionnaire Date Thrive assessed: 11/21/24 I am a: Patient What is your living situation today?: I have a steady place to live Within the past 12 months, did the food you bought not last and you didn't have the money to get more?: Never true Within the past 12 months, did you worry whether your food would run out before you got money to buy more?: Never true Do you have trouble paying for medicines?: No Do you have trouble getting transportation to medical appointments?: No Do you have trouble paying your heating and electricity bill?: No Do you have trouble taking care of your child, family member or friend?: No Do you have trouble with day-to-day activities such as bathing, preparing meals, shopping, managing finances, etc.?: No Are you currently unemployed and looking for a job?: No Are you interested in more education?: No Please select the resources that you would like help with: None Currently or been in a relationship where the following occur: No concerns reported THRIVE Score: 0 AUDIT C Alcohol Use Questionnaire (AUDIT-C) 1. How often do you have a drink containing alcohol?: Never Total Score: 0 KAVITA-7 AMB Questionnaire KAVITA-7 Date KAVITA - 7 assessed: 11/21/24 Feeling nervous, anxious, or on edge: 0 = Not at all Not being able to stop or control worryin = Not at all Worrying too much about different things: 0 = Not at all Trouble relaxin = Not at all Being so restless that it is hard to sit still: 0 = Not at all Becoming easily annoyed or irritable: 0 = Not at all Feeling afraid as if something awful might happen: 0 = Not at all Total KAVITA-7 score (0-4 normal; 5-9 mild; 10-14 moderate; 15-21 severe): 0 Source: Developed by Drs. Hugo Sanches, Beckie Wiggins, Jose Daniel Barry and colleagues, with an educational sunshine from [employer]. Physical exam (Primary Care) Vital Signs: Last Vital Signs Pulse 75 11/21/24 09:38 BP 110/68 11/21/24 09:38 Pulse Ox 98 11/21/24 09:38 Oxygen Delivery Method Room Air 11/21/24 09:38 BMI result Body Mass Index 25.2 Tobacco/Smoking Status: Tobacco use Status Tobacco use date assessed 11/21/24 11/21/24 09:41 Patient Tobacco Use Status Never used Tobacco 11/21/24 09:41 Tobacco use type Cigarette 11/21/24 09:41 e-Cigarette/Vaping Use Never Used 11/21/24 09:41 PHQ-9: PHQ-9 Score PHQ-9: Total score 0 11/21/24 09:51 Depression Screening Interpretation: Negative Thrive Assessment: Date of Thrive Assessment Date Thrive assessed 11/21/24 11/21/24 09:41 Currently or been in a relationship where the following occur: No concerns reported Const General: alert; No acute distress Eyes Conjunctivae: conjunctivae normal Resp Auscultation: clear to auscultation bilaterally Cardio Rate: regular rate Rhythm: regular rhythm GI Inspection: Yes normal to inspection Extrem General: Yes normal to inspection and No edema Results AMB Urinalysis, Automated UA Leukoctes 0 Silvana/uL Last Edit by Garima Ma CMA on 11/21/24 09:52 UA Nitrite Negative Last Edit by Garima Ma CMA on 11/21/24 09:52 UA Urobilinogen 0.2 mg/dL Last Edit by Garima Ma CMA on 11/21/24 09:52 UA Protein 0 mg/dL Last Edit by Garima Ma CMA on 11/21/24 09:52 UA pH 6.0 Last Edit by Garima Ma CMA on 11/21/24 09:52 UA Blood 0 Jaron/uL Last Edit by Garmia Ma CMA on 11/21/24 09:52 UA Specific [place] 1.030 Last Edit by Garima Ma CMA on 11/21/24 09:52 UA Ketone Negative Last Edit by Garima Ma CMA on 11/21/24 09:52 UA Bilirubin 0 mg/dL Last Edit by Garima Ma CMA on 11/21/24 09:52 UA Glucose 0 mg/dL Last Edit by Garima Ma CMA on 11/21/24 09:52 Results Reviewed Results Reviewed: Laboratory Last Values Urine pH (Auto) 6.0 11/21/24 09:41 Specific [place] (Auto) 1.030 11/21/24 09:41 Urine Protein (Auto) 0 mg/dL 11/21/24 09:41 Glucose (UA)(Auto) 0 mg/dL 11/21/24 09:41 Urine Ketones (Auto) Negative 11/21/24 09:41 Urine Blood (Auto) 0 Jaron/uL 11/21/24 09:41 Urine Nitrite (Auto) Negative 11/21/24 09:41 Urine Bilirubin (Auto) 0 mg/dL 11/21/24 09:41 Urine Urobilinogen (Auto) 0.2 mg/dL 11/21/24 09:41 Leukocyte Esterase (Auto) 0 Silvana/uL 11/21/24 09:41 Coding Level of Care Code Est Pt Level 4 (97927) Diagnoses Radial scar of right breast N64.89 Nephrolithiasis N20.0 Hyperparathyroidism E21.3 Trochanteric bursitis, right hip M70.61 Elevated fasting blood sugar R73.01 Assessment & Plan Assessment & Plan (1) Radial scar of right breast: Code(s): N64.89 - Other specified disorders of breast Category: Medical Plan: Discussed with the patient about the mammogram results from July. Will do a referral to the surgeon. (2) Nephrolithiasis: Code(s): N20.0 - Calculus of kidney Category: Medical Plan: Keep well hydrated (3) Hyperparathyroidism: Comment: s/p parathyroidectomy Code(s): E21.3 - Hyperparathyroidism, unspecified Category: Medical Plan: Patient has had parathyroidectomy and hypercalcemia has resolved. (4) Trochanteric bursitis, right hip: Code(s): M70.61 - Trochanteric bursitis, right hip Category: Medical Plan: Discussed that presently on the 3rd day of pain will do anti-inflammatory. Discussed about if pain persist will do x-rays of the right hip and possible referral to orthopedics. (5) Elevated fasting blood sugar: Code(s): R73.01 - Impaired fasting glucose Category: Medical Plan: Decrease the amount of carbohydrate intake, pasta, bread, rice and potatoes are all sugar and that is aside from all the sweet stuff, remember that fruits are good but they are Sweet also. Plan History of Present Illness The patient is a 44-year-old female presenting with right hip pain, which began three days prior to the visit. The pain started in the hip and radiated down the leg, with no reported falling incidents or recent trauma. 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 The patient also has a significant past medical history of conditions such as obesity, hyperparathyroidism previously treated with parathyroidectomy in 2022, nephrolithiasis, and hyperglycemia indicating possible prediabetes. She experiences right elbow lateral epicondylitis since August 2024 and has under gone a mammogram revealing radial scarring in the right breast, which warrants further surgical evaluation. Health Maintenance - Mammogram conducted in July 2024 with findings of radial scar; advised surgical consultation. - Advised to maintain adequate hydration due to history of nephrolithiasis. - Lifestyle and dietary counseling given due to hyperglycemia and family history of diabetes. - Encouraged annual mammography screenings for breast health monitoring. Social History - The patient works in a daycare, involving lifting and carrying tasks. - Reports no changes in her longstanding work duties, typically involving carrying babies. - Admits to having a sweet tooth, which may impact blood glucose levels. Review of Systems - Musculoskeletal: Reports right hip pain. - Endocrine: Denies symptoms related to hyperparathyroidism post-surgery. - Neurological: Denies radiating pain beyond the hip to thigh or leg. - Gastrointestinal: Denies abdominal pain or symptoms. - General: Denies recent falls or trauma. Physical Exam - Musculoskeletal- Tenderness over the right greater trochanter region. Results - Labs: Elevated blood glucose at 100 mg/dL as of May 2024. - Imaging: Mammogram dated July 2024 showing radial scar in the right breast. Plan I recommend treating the right hip pain with anti-inflammatory medication and advise the patient to limit activities involving heavy lifting. I will monitor her condition and explore further interventions, like x-rays and referral to orthopedics if pain persists. Lifestyle modifications to address her hyperglycemia and a repeat fasting glucose test are advised. I refer her to a breast surgeon to evaluate the radial scar identified in the mammogram. Patient was informed and verbally consented to the use of an ambient scribe for clinic note documentation during this visit. Discussion Notes I provided a detailed explanation of the diagnosis of right hip trochanteric bursitis, the risks of delayed treatment, and the importance of adhering to activity modifications to aid recovery. Discussed management options and the rationale for starting with anti-inflammatory treatment. I emphasized the role of lifestyle changes in controlling hyperglycemia and reviewed the importance of monitoring fasting blood glucose levels. For the radial scar, I discussed the need for further assessment by a breast surgeon to evaluate potential intervention. Patient Instructions - Take prescribed anti-inflammatory medication for hip pain. - Avoid heavy lifting to reduce worsening of hip symptoms. - Drink adequate water daily to maintain hydration and support renal health. - Follow a healthy diet to manage blood sugar levels. - Schedule follow-up for fasting blood glucose test and breast surgeon consultation. - Return if pain worsens or does not improve with current treatment measures. Orders: Orders Hemoglobin A1c Today R73.01 - Impaired fasting glucose AMB Urinalysis Automated Today M54.9 - Dorsalgia, unspecified Comprehensive Met. Panel Today R73.01 - Impaired fasting glucose Referrals General Surgery Referral N64.89 - Other specified disorders of breast Medications: New meloxicam 15 mg PO DAILY 30 tabs 0RF M70.61 - Trochanteric bursitis, right hip
--- OUTSIDE RECORDS SUMMARY | 2024-11-21 10:14 | XMS_ITS | Clinical Summary ---
Author Organization [facility] Address [address] [place] [address] Care Team Providers Care Finisher Accordion Name Role Phone Leanne Lopez MD Primary Care Provider Allergies No known active allergies Medications Calcium 200 MG Tab Take by mouth. Active loratadine-pseu doephedrine (CLARITIN-D 12-hour) 5-120 MG per 12 hr tabletIndicatio ns:Dysfunction of right eustachian tube Take 1 tablet by mouth 2 (two) times a day. 60 tablet 08/01/2023 Active fluticasone (FloNASE) 50 mcg/spray nasal sprayIndication s:Dysfunction of right eustachian tube 1 spray into each nostril daily. 1 each 08/01/2023 Active Social History Tobacco Use Types Packs/Day Years Used Date Smoking Tobacco: Never Smokeless Tobacco: Never Comments Unknown Sex and Gender Information Value Date Recorded Sex Assigned at Not on file Legal Sex Female 11:23 AM EST Gender Identity Not on file Sexual Orientation [...] Pap Smear (Ages 21-65) 09/14/2003 Mammogram 2022 COVID-19 Vaccine (3 - 2023-2 5 season) 2024 09/23/2020, 08/26/2020 Influenza Vaccine 02/09/2025 05/20/2021 HPV Vaccines Aged Out No longer eligi ble based on patient's age to complete this topic Pneumococcal Vaccine: Pediatric (0-5 Years) and At-Risk Patients (6 to 49 Years) Aged Out No longer eligible b ased on patient's age to complete this topic Insurance [facility] PREFERRED Care Teams Finisher Accordion Relationship Specialty Start Date End Date Leanne Lopez MD [address] [place] [address] PCP - General Family Medicine 08/01/23
== END 2024-11-21 10:02 | disposition home or self-care (01) ==
LOC: HO.HMCH 09:35
PROVIDERS: PCP Internal Medicine; Visit Provider Internal Medicine
DX: N64.89 Other specified disorders of breast (principal); N20.0 Calculus of kidney; E21.3 Hyperparathyroidism, unspecified; M70.61 Trochanteric bursitis, right hip; R73.01 Impaired fasting glucose; M54.9 Dorsalgia, unspecified

== ENCOUNTER → 2024-11-21 09:34 | Outpatient (BNVA) | payer BC, SELFPAY | PROVIDERS: PCP Internal Medicine; Visit Provider Internal Medicine | DX: N64.89 Other specified disorders of breast (principal); N20.0 Calculus of kidney; E21.3 Hyperparathyroidism, unspecified; M70.61 Trochanteric bursitis, right hip; R73.01 Impaired fasting glucose; M54.9 Dorsalgia, unspecified | CPT/HCPCS: 81003; 96127 ==

== ENCOUNTER 2025-02-12 13:39 | Outpatient (AMB) | payer BC, SELFPAY ==
--- NOTE | 2025-02-12 13:41 | MHC.OFFVIS ---
Vital Signs 02/12/25 13:48 Height 5 ft 2 in Weight 142 lb BMI 26.0 BP 120/58 L Blood Pressure Location Rt brachial Position Sitting Pulse 72 Intake Visit Reasons: radial scar right breast Intake Note: Patient referred by pcp Dr. Fu for evaluation of Rt breast radial scar. Patient c/o: denies itch, pain. Present for 1yr. Denies trauma to area. Mammogram: 08-07-2024 Public Relations Assistant Required: No Accompanied by: Self / Same As Patient Allergies No Known Allergies Allergy (Verified 02/12/25 13:46) HPI HPI radial scar right breast: Details: [age] year old female here for follow-up for her breast masses on the right. I had actually seen her in September of 2023 for mammogram showing a hypoechoic mass at the 10:00 and 2 o'clock position of the right breast. Image guided needle biopsies were done at that time. 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 She did undergo a follow up mammogram last July, no significant changes from prior exam last year. The to breast marker clips the patient did with the radial scar were seen. She was referred to me again as radial scars are associated with high-grade lesions and and excision is recommended. She denies any palpable breast masses. She denies any palpable breast masses Her menarche was at age of 13. She had 3 pregnancies. Her 1st was the age of 19. She still has her periods She denies a family history of breast cancer. [facility] Medical History (Updated 02/12/25 @ 14:10 by Mane Valdez MD) Radial scar of breast Left breast mass Breast mass, right Hyperparathyroidism Hypovitaminosis D Hypercalcemia Family history of diabetes mellitus Surgical History History of parathyroid surgery History of removal of calculus of renal pelvis through percutaneous nephrostomy H/O tubal ligation Family History Mother Diabetes Father Heart disease Social History Household Members: Family Housing: House Alcohol intake: never Patient Tobacco Use Status: Never used Tobacco Tobacco use type: Cigarette e-Cigarette/Vaping Use: Never Used Second Hand Smoke Exposure: No service: No Current occupational status: employed Current occupation: DayCare/ right hand dominant Current occupational exposures/hazards: No Cognitive needs: No Hearing needs: No Vision needs: No Female Reproductive History Menstrual Age of Menarche: 13 Review of Systems Const Denies chills and Denies fever(s) Card Denies chest pain, Denies dyspnea and Denies dyspnea on exertion Resp Denies cough, Denies dyspnea and Denies dyspnea on exertion GI Denies hematochezia and Denies change in bowel habits Denies hematuria Musc Denies back pain and Denies limited range of motion Neuro Denies focal weakness and Denies convulsions Psych Denies depression and Denies mood swings Physical Exam Vital Signs: Last Vital Signs Pulse 72 02/12/25 13:48 BP 120/58 L 02/12/25 13:48 BMI result Body Mass Index 26.0 Const General: comfortable and no acute distress Orientation/consciousness: patient oriented x3 Neck Neck: Yes no lymphadenopathy Chest Other: No palpable breast masses, no axillary lymphadenopathy, no nipple or skin changes Resp Auscultation: clear to auscultation bilaterally Cardio Rhythm: regular rhythm GI Palpation (GI): Soft to palpation, nontender and no guarding Neuro General: patient oriented x3 Assessment & Plan Assessment & Plan (1) Radial scar of breast: Code(s): N64.89 - Other specified disorders of breast Category: Medical Plan: She has had biopsies on the 2 o'clock position 10 o'clock position of the right breast showing a radial scar with 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 She did not follow up after her 2nd biopsy then as she says she has been busy with her care business. She did have a follow up mammogram last July, showing no change in these areas. However, radial scars are sometimes associated with a high-grade lesions and surgical excision is recommended I explained to her the technique of lumpectomy of the right breast with Hologic localizer for these 2 areas. I reviewed the risks including but not limited to bleeding, infections, hematoma formation, the need for additional surgery, as well as the benefits and alternatives. I reviewed with her what to expect postoperatively She understands and wants to proceed. Coding Level of Care Code Est Pt Level 3 (36974) Diagnoses Radial scar of breast N64.89
[2025-02-12 13:48] VITALS: BP 120/58; PULSE 72; BMI 26.0
--- OUTSIDE RECORDS SUMMARY | 2025-02-12 13:50 | XMS_ITS | Clinical Summary ---
Author Organization [facility] Address [address] [place] [address] Care Team Providers Care Asian Studies Professor Name Role Phone Leanne Lopez MD Primary Care Provider [phone] Allergies No known active allergies Medications Calcium [...] 69 08/01/2023 1:33 PM EST Temperature 36.8 C (98.3 F) 08/01/2023 1:33 PM EST Respiratory Rate 17 08/01/2023 1:33 PM EST [...] patient's age to complete this topic Insurance [facility] PREFERRED Care Teams Asian Studies Professor Relationship Specialty Start Date End Date Leanne Lopez MD [address] [place] [address] PCP - General Family Medicine 08/01/23
--- OUTSIDE RECORDS SUMMARY | 2025-02-12 13:50 | XMS_ITS ---
Author Name [facility] Organization Unknown History of Medication Use Medication Directions Dispensed Refills Start Date End Date Stat loratadine-pseudoeph edrine (CLARITIN-D 12-hour) 5-120 MG per 12 hr tablet Take 1 tablet by mouth 2 (two) times a day. 08/01/2023 active Calcium 200 MG Tab Take by mouth. active Problems Problem Status Onset Date Problem Type Date of Resoluti on Source Dysfunction of right eustachian tube active EncounterDiagnosisAct [facility] CT Viral URI active EncounterDiagnosisAct [facility] Encounters Encounter Type Encounter Reason Primary Diagnosis Location Date Ambulatory Acute upper respiratory infection, unspecified Acute upper respiratory infection, unspecified [facility] 08/01/2023 Care Team Organization Name Specialty Phone Email Start Date End [facility] Specialist ([facility]) 05/26/2024 [facility] RKISTY URBINA Primary Care 08/01/2023 09/27/2024 [facility] ADOLFO URBINA Primary Care 08/01/2023 [facility] 08/01/2023
--- OUTSIDE RECORDS SUMMARY | 2025-02-12 13:50 | XMS_ITS | Clinical Summary ---
Author Organization [facility] Address [address] [place] [address] Care Team Providers Care Manager Field Sales Name Role Phone Sheree Chavez MD Primary [...] 64 12/24/2014 9:01 AM EDT Temperature 36.9 C (98.5 F) 12/24/2014 9:01 AM EDT Respiratory Rate 14 12/24/2014 9:01 AM EDT [...] HEALTH EXAM 40-64 2022 12/24/2014 MAMMOGRAM 2022 BMI CHECK/ADVISE 07/12/2024 DTAP/TDAP/TD (2 - Td or Tdap) 12/24/2024 12/24/2014 INFLUENZA (#1) 2025 PNEUMOCOCCAL VACCINE FOR HIG H RISK PATIENTS (#1) 09/14/2047 Care Teams Manager Field Sales Relationship Specialty Start Date End Date Sheree Chavez MD PCP - General Internal Medicine 09/17/14
== END 2025-02-12 14:03 | disposition home or self-care (01) ==
LOC: HO.HGS 13:40
PROVIDERS: PCP Internal Medicine; Visit Provider Surgery
DX: N64.89 Other specified disorders of breast (principal)
CPT/HCPCS: 99213

== ENCOUNTER 2025-02-21 10:56 | Outpatient (REF) | payer BC, SELFPAY ==
--- OUTSIDE RECORDS SUMMARY | 2025-02-21 11:50 | XMS_ITS | Clinical Summary ---
Author Organization [facility] Address [address] [place] [address] Care Team Providers Care Book Salesman Name Role Phone Leanne Lopez MD Primary Care Provider [phone] Allergies No known active allergies Medications Calcium [...] patient's age to complete this topic Insurance [facility] PREFERRED Care Teams Book Salesman Relationship Specialty Start Date End Date Leanne Lopez MD [address] [place] [address] PCP - General Family Medicine 08/01/23
[2025-02-21 12:07] LABS: Alanine Aminotransferase 13 U/L (0-31); Albumin Level 4.1 g/dL (3.5-5.0); Alkaline Phosphatase 45 U/L (39-117); Anion Gap 10 (12-20); Aspartate Amino Transferase 21 U/L (5-31); Blood Urea Nitrogen 12 mg/dL (9-16); Calcium 8.1 mg/dL (8.4-10.2); Carbon Dioxide 26 mmol/L (22-29); Chloride 110 mmol/L (96-108); Estimated Glomerular Filt Rate > 60; Potassium 3.8 mmol/L (3.3-5.1); Sodium 142 mmol/L (135-145); Total Protein 6.8 g/dL (6.5-8.0)
[2025-02-21 12:16] LABS: Hemoglobin A1C 121.1739 umol/L; Total Hemoglobin (HGBA1C) 3026.1786 umol/L
== END 2025-02-21 10:57 | disposition home or self-care (01) ==
LOC: HO.LAB 10:56
PROVIDERS: Visit Provider Internal Medicine
DX: R73.01 Impaired fasting glucose (principal)
CPT/HCPCS: 36415; 80053; 83036

== ENCOUNTER 2025-03-27 07:57 | Outpatient (REF) | payer BC, SELFPAY ==
--- NOTE | ~2025-03-27 | US_ITS ---
Procedures: 1. MM MAMMOGRAM GUIDED RFID LOCALIZATION BREAST, RIGHT 2. ULTRASOUND GUIDED RFID LOCALIZATION BREAST, RIGHT CLINICAL INFORMATION: -September 15, 2023: Right breast ultrasound-guided biopsy of lesion at 10 o'clock position 5 cm from the nipple showed PASH and features of radial scar. Barrel-shaped metallic clip placed. -September 22, 2023: Stereotactic needle core biopsy of architectural distortion in the upper inner quadrant of the right breast. Pathology showed radial scar formation, sclerosing adenosis. Buckle shape clip placed, which is approximately 1 cm away from the center of architectural distortion. COMPARISON: Ultrasound-guided needle core biopsy on September 15, 2023. Stereotactic needle core biopsy of the right breast September 22, 2023. Screening mammogram on August 07, 2024. TECHNIQUE NEEDLE LOC: Proper informed consent is obtained from the patient after discussion of the procedure, potential risks and complications, and alternatives including declining the procedure today. Patient was given an opportunity for questions. The patient appeared to understand. The patient consented to the procedure and signed the consent form. After reviewing the images, it was decided to place RFID under ultrasound guidance for the lesion located at 10 o'clock position 5 cm from the nipple and under mammographic guidance for the architectural distortion in the upper inner quadrant. Definite sonographic correlate and previously placed clip at the area of distortion in the upper inner quadrant could not be identified with confidence. 1st part: GUIDANCE: Ultrasound TARGET: Hypoechoic mass, possibly old hematoma, associated with biopsied mass at 10 o'clock position 5-6 cm from the nipple. ANESTHESIA: Approximately 4 cc of lidocaine 1% buffered with Sodium Bicarbonate 8.4 % (9cc: 1cc). LOCALIZATION SYSTEM: -[employer] LOCallizer Wire-Free Guidance System with 12g needle applicator. -Length: 7 cm. -RADIOFREQUENCY TAG: ID # [id number] DERMATOTOMY: Single skin-pinky dermatotomy performed. RF Tag ID confirmed with LOCalizer Guidance System prior to placement. The skin is prepped and local anesthesia administered. The needle is positioned and RFID tag deployed. Final images demonstrate the LOCalizer RF tag to reside adjacent to the intended target associated with barrel-shaped clip. 2nd part: GUIDANCE: Digital mammography. APPROACH: Medial. TARGET: Central portion of architectural distortion located in the upper inner quadrant. Note that the buckle shaped is not located at the center of the target. ANESTHESIA: Approximately 6 cc of lidocaine 1% buffered with Sodium Bicarbonate 8.4% (9cc: 1cc). LOCALIZATION SYSTEM: -[employer] LOCallizer Wire-Free Guidance System with 12g needle applicator. -Length: 5 cm. -RADIOFREQUENCY TAG: ID # [id number] DERMATOTOMY: Single skin-pinky dermatotomy performed. RF Tag ID confirmed with LOCalizer Guidance System prior to placement. The skin is prepped and local anesthesia administered. The needle is positioned and RFID tag deployed. Final images demonstrate the LOCalizer RF tag to reside adjacent to the intended target, which was the center of architectural distortion in the upper inner quadrant. The patient tolerated the procedure well and had no immediate complications. Dressing placed and home instructions reviewed. US/US Breast RF Tag Device Right IMPRESSION: -Status post right breast RFID localization under ultrasound guidance of the lesion located at 10 o'clock position at 5-6 cm from the nipple, associated with barrel-shaped clip. TAG: ID # [id number] -Status post right breast RFID localization under mammographic guidance of the architectural distortion located in the upper inner quadrant, associated with buckle shape clip. TAG: ID # [id number] Electronically signed by: Ronnell Munoz MD 03/27/2025 01:40 PM EDT
--- NOTE | ~2025-03-27 | MM_ITS ---
Procedures: 1. MM MAMMOGRAM GUIDED RFID LOCALIZATION BREAST, RIGHT 2. ULTRASOUND GUIDED RFID LOCALIZATION BREAST, RIGHT CLINICAL INFORMATION: -September 15, 2023: Right breast ultrasound-guided biopsy of lesion at 10 o'clock position 5 cm from the nipple showed PASH and features of radial scar. Barrel-shaped metallic clip placed. -September 22, 2023: Stereotactic needle core biopsy of architectural distortion in the upper inner quadrant of the right breast. Pathology showed radial scar formation, sclerosing adenosis. Buckle shape clip placed, which is approximately 1 cm away from the center of architectural distortion. COMPARISON: Ultrasound-guided needle core biopsy on September 15, 2023. Stereotactic needle core biopsy of the right breast September 22, 2023. Screening mammogram on August 07, 2024. TECHNIQUE NEEDLE LOC: Proper informed consent is obtained from the patient after discussion of the procedure, potential risks and complications, and alternatives including declining the procedure today. Patient was given an opportunity for questions. The patient appeared to understand. The patient consented to the procedure and signed the consent form. After reviewing the images, it was decided to place RFID under ultrasound guidance for the lesion located at 10 o'clock position 5 cm from the nipple and under mammographic guidance for the architectural distortion in the upper inner quadrant. Definite sonographic correlate and previously placed clip at the area of distortion in the upper inner quadrant could not be identified with confidence. 1st part: GUIDANCE: Ultrasound TARGET: Hypoechoic mass, possibly old hematoma, associated with biopsied mass at 10 o'clock position 5-6 cm from the nipple. ANESTHESIA: Approximately 4 cc of lidocaine 1% buffered with Sodium Bicarbonate 8.4 % (9cc: 1cc). LOCALIZATION SYSTEM: -[employer] LOCallizer Wire-Free Guidance System with 12g needle applicator. -Length: 7 cm. -RADIOFREQUENCY TAG: ID # [id number] DERMATOTOMY: Single skin-pinky dermatotomy performed. RF Tag ID confirmed with LOCalizer Guidance System prior to placement. The skin is prepped and local anesthesia administered. The needle is positioned and RFID tag deployed. Final images demonstrate the LOCalizer RF tag to reside adjacent to the intended target associated with barrel-shaped clip. 2nd part: GUIDANCE: Digital mammography. APPROACH: Medial. TARGET: Central portion of architectural distortion located in the upper inner quadrant. Note that the buckle shaped is not located at the center of the target. ANESTHESIA: Approximately 6 cc of lidocaine 1% buffered with Sodium Bicarbonate 8.4% (9cc: 1cc). LOCALIZATION SYSTEM: -[employer] LOCallizer Wire-Free Guidance System with 12g needle applicator. -Length: 5 cm. -RADIOFREQUENCY TAG: ID # [id number] DERMATOTOMY: Single skin-pinky dermatotomy performed. RF Tag ID confirmed with LOCalizer Guidance System prior to placement. The skin is prepped and local anesthesia administered. The needle is positioned and RFID tag deployed. Final images demonstrate the LOCalizer RF tag to reside adjacent to the intended target, which was the center of architectural distortion in the upper inner quadrant. The patient tolerated the procedure well and had no immediate complications. Dressing placed and home instructions reviewed. MM/MM RF Tag device RT IMPRESSION: -Status post right breast RFID localization under ultrasound guidance of the lesion located at 10 o'clock position at 5-6 cm from the nipple, associated with barrel-shaped clip. TAG: ID # [id number] -Status post right breast RFID localization under mammographic guidance of the architectural distortion located in the upper inner quadrant, associated with buckle shape clip. TAG: ID # [id number] Electronically signed by: Ronnell Munoz MD 03/27/2025 01:40 PM EDT
--- OUTSIDE RECORDS SUMMARY | 2025-03-27 08:04 | XMS_ITS | Clinical Summary ---
Author Organization [facility] Address [address] [place] [address] Care Team Providers Care Willow Machine Operator Name Role Phone Leanne Lopez MD Primary Care Provider [phone] Allergies No known active allergies Medications Calcium [...] 3-dose SCD M series) 2009 Mammogram 2022 Influenza Vaccine 02/09/2025 05/20/2021 COVID-19 Vaccine (3 - 2024-2 6 season) 2025 09/23/2020, 08/26/2020 Pneumococcal Vaccine: Pediatric (0-5 Years) and At-Risk Patients (6 to 49 Years) Aged Out No longer eligible b ased on patient's age to complete this topic Insurance [facility] PREFERRED Care Teams Willow Machine Operator Relationship Specialty Start Date End Date Leanne Lopez MD [address] [place] [address] PCP - General Family Medicine 08/01/23
[2025-03-27] MEDS: Lidocaine HCl 1 % 20 ML VIAL 18 ML SUBCUT (10:14)
== END 2025-03-27 07:58 | disposition home or self-care (01) ==
LOC: HO.MAMMO 07:57
PROVIDERS: PCP Internal Medicine; Visit Provider Surgery
DX: Z12.31 Encounter for screening mammogram for malignant neoplasm of breast (principal); N63.12 Unspecified lump in the right breast, upper inner quadrant
CPT/HCPCS: 19281; 19285; C1819; J2003

== ENCOUNTER → 2025-03-27 08:00 | Outpatient (BNV) | payer BC, SELFPAY | PROVIDERS: PCP Internal Medicine; Visit Provider Radiology Body Imaging | DX: N63.12 Unspecified lump in the right breast, upper inner quadrant (principal) | CPT/HCPCS: 19281; 19285 ==

== ENCOUNTER 2025-04-03 05:55 | Day surgery (SDC) | payer BC, SELFPAY ==
--- OUTSIDE RECORDS SUMMARY | 2025-02-26 07:11 | XMS_ITS | Clinical Summary ---
Author Organization [facility] Address [address] [place] [address] Care Team Providers Care Dry Sander Name Role Phone Leanne Lopez MD Primary Care Provider [phone] Allergies No known active allergies Medications Calcium [...] series) 2001 Pap Smear (Ages 21-65) 09/14/2003 HPV Vaccines (1 - 3-dose SCD M series) 2009 Mammogram 2022 COVID-19 Vaccine (3 - 2023-2 5 season) 2024 09/23/2020, 08/26/2020 Influenza Vaccine 02/09/2025 05/20/2021 Pneumococcal Vaccine: Pediatric (0-5 Years) and At-Risk Patients (6 to 49 Years) Aged Out No longer eligible b ased on patient's age to complete this topic Insurance [facility] PREFERRED Care Teams Dry Sander Relationship Specialty Start Date End Date Leanne Lopez MD [address] [place] [address] PCP - General Family Medicine 08/01/23
[2025-03-30 14:43] VITALS: BMI 26.0
[2025-04-03] VITALS (9 sets, daily range): BP systolic 106–126; BP diastolic 58–69; PULSE 54–74; RESP 16; TEMP 36.2–36.3; O2SAT 97–100
--- NOTE | ~2025-04-03 | MM_ITS ---
1) Right single specimen radiograph demonstrates the buckle shape clip and the LOCalizer tag within the specimen. 2) Right single specimen radiograph demonstrates the barrel shape clip and the LOCalizer tag within the specimen. Results were called to the operating room when each of the images were available for review. Electronically signed by: Ronnell Munoz MD 04/03/2025 08:54 AM EDT
[2025-04-03] MEDS: Lactated Ringers 1,000 ML 100 ML IVCONT (06:32)
--- NOTE | 2025-04-03 07:16 | MHC.SHP ---
Pre-Procedural Eval Section A - 24 Hr Update-Section A only Date of Service: 04/03/25 Section B - Complete if H&P > 30 days Chief Complaint: Other specified disorders of breast Details of Present Illness: Has radial scar on 2 areas of the right breast, for excision biopsy with Hologic localizer Relevant Family History (Specify if Yes): No Relevant Social History: None Present Medications: see Short Stay Collaborative assessment Medical History: Significant History (Hypovitaminosis D, history of nephrolithiasis,) Allergies: Allergies Allergy/AdvReac Type Severity Reaction Status Date / Time No Known Allergies Allergy Verified 02/12/25 13:46 Review of Systems Sugical H&P ROS: Negative: Constitution, Cardiovascular and Respiratory Exam Surgical H&P Exam: Normal: Heart, Normal: Lungs and Normal: Abdomen Plan Diagnosis/Plan: Unchanged I have reviewed the history and physical and performed a pertinent physical examination on my patient. No changes have occurred unless specified. Time Spent With Patient Time: Total time managing care of this patient today ____ minutes.
--- NOTE | 2025-04-03 07:27 | P.CONAN_ITS ---
Documented by User: Julianna Mancilla NP 03/30/25 12:54 HPI - Anesthesia Eval Consult details Narrative: 44 yr old female for right Breast Lumpectomy w/LOCalizer X 2 Type 2 DM: diet controlled PMFSH Active Problems Active Problems: All Active Problems (Updated 02/12/25 @ 14:10 by Mane Valdez MD) Radial scar of breast (Acute) Elevated fasting blood sugar (Acute) Trochanteric bursitis, right hip (Acute) Radial scar of right breast (Acute) Lateral dislocation of right elbow (Acute) Right elbow pain (Acute) Left breast mass (Acute) Breast mass, right (Acute) Urticaria (Acute) Vaginal discharge (Acute) Physical exam (Acute) Fatigue (Acute) Immunization due (Acute) Nephrolithiasis (Acute) Hyperparathyroidism (Acute) Cervical cancer screening (Acute) Well woman exam with routine gynecological exam (Acute) Hypovitaminosis D (Acute) Hypercalcemia (Acute) Family history of diabetes mellitus (Acute) Past Medical History Medical History (Updated 02/12/25 @ 14:10 by Mane Valdez MD) Radial scar of breast Left breast mass Breast mass, right Hyperparathyroidism Hypovitaminosis D Hypercalcemia Family history of diabetes mellitus Family History Family History Mother Diabetes Father Heart disease Surgical History Surgical History History of parathyroid surgery History of removal of calculus of renal pelvis through percutaneous nephrostomy H/O tubal ligation Social History Social History Household Members: Family Housing: House Are you a primary critical care cns to a significant other at home: No Do you presently have visiting nurse or other home services: No Alcohol intake: never Patient Tobacco Use Status: Never used Tobacco Tobacco use type: Cigarette e-Cigarette/Vaping Use: Never Used Second Hand Smoke Exposure: No Use of substances other than those prescribed or required for medical reasons: No Have you been hit, kicked, punched, or otherwise hurt by someone within the past year? If so, by whom?: No Are you DNR?: No Advance Directives: No Advance Directives Information Provided: Yes Advance Directives on File: No Patient : No : No Poor oral hygiene: No service: No Current occupational status: employed Current occupation: DayCare/ right hand dominant Current occupational exposures/hazards: No Cognitive needs: No Hearing needs: No Vision needs: No Meds Allergies Allergy/AdvReac Type Severity Reaction Status Date / Time No Known Allergies Allergy Verified 02/12/25 13:46 Documented by User: Shelly Reyes DO 04/03/25 07:28 PMF Past Medical History Medical History (Updated 02/12/25 @ 14:10 by Mane Valdez MD) Radial scar of breast Left breast mass Breast mass, right Hyperparathyroidism Hypovitaminosis D Hypercalcemia Family history of diabetes mellitus Family History Family History Mother Diabetes Father Heart disease Family history of problems with anesthesia: No Surgical History Surgical History History of parathyroid surgery History of removal of calculus of renal pelvis through percutaneous nephrostomy H/O tubal ligation History of Problems with Anesthesia: No Social History Social History Household Members: Family Housing: House Are you a primary critical care cns to a significant other at home: No Do you presently have visiting nurse or other home services: No Alcohol intake: never Patient Tobacco Use Status: Never used Tobacco Tobacco use type: Cigarette e-Cigarette/Vaping Use: Never Used Second Hand Smoke Exposure: No Use of substances other than those prescribed or required for medical reasons: No Have you been hit, kicked, punched, or otherwise hurt by someone within the past year? If so, by whom?: No Are you DNR?: No Advance Directives: No Advance Directives Information Provided: Yes Advance Directives on File: No Patient : No : No Poor oral hygiene: No service: No Current occupational status: employed Current occupation: DayCare/ right hand dominant Current occupational exposures/hazards: No Cognitive needs: No Hearing needs: No Vision needs: No Meds Allergies Allergy/AdvReac Type Severity Reaction Status Date / Time No Known Allergies Allergy Verified 02/12/25 13:46 Exam Exam Date and Time: 04/02/25 0721 Height,Weight and Vital Signs: Height 5 ft 2 in Weight 64.41 kg Vital Signs Temperature 97.4 F 04/03/25 06:31 Pulse Rate 68 04/03/25 06:31 Respiratory Rate 16 04/03/25 06:31 Blood Pressure 126/68 04/03/25 06:31 Pulse Oximetry 98 04/03/25 06:31 Oxygen Delivery Method Room Air 04/03/25 06:31 Temperature 97.4 F 04/03/25 06:31 Pulse Rate 68 04/03/25 06:31 Respiratory Rate 16 04/03/25 06:31 Blood Pressure 126/68 04/03/25 06:31 Pulse Oximetry 98 04/03/25 06:31 Oxygen Delivery Method Room Air 04/03/25 06:31 Airway Mallampati Class: I TM Dist: >3cm Neck ROM: Full Loose/Missing/Broken Teeth: No (patient denies any loose or broken teeth) Heart: S1S2 Lungs: CTAB Assessment and Plan Assessment Anesthesia Assessment: Anesthesia Plan Discussed and Chart Reviewed Final Anesthetic Review Family History of Problems with Anesthesia: No History of Problems with Anesthesia: No NPO: Yes ASA Class: II Final Preanesthetic Review: No Changes in Pt Med Stat, Meds/Allgs Chart Reviewed, Consent Obtained/Reviewed and Anes Risks/Benef Reviewed Patient Risk: Low Procedure Risk: Low Anesthetic Plan Anesthetic Plan: GA and Agree w/ Assess. and Plan Disposition: Standard PACU
--- NOTE | 2025-04-03 08:12 | PC.NURSE ---
patient purse given to in waiting room per patient request
--- NOTE | 2025-04-03 08:38 | P.OP_ITS ---
Operative Note Operative Note Date of Service: 04/03/25 Narrative: Preop diagnosis: Radial scar x2, right breast Postop diagnosis: The same Procedure: Lumpectomy with the Hologic localizer x2, right breast Surgeon: Mane Valdez MD assistant to the dean: JUVENTINO Mendez The patient is a 44 year old female who had 2 areas on the right breast with biopsy showing a radial scar on both sites. In view of the association with a high-grade lesions, she was scheduled for lumpectomy with the Hologic localizer. She understood the technique of the planned procedure as well as the risks, benefits, and alternatives. She was brought to the operating room and placed supine under general anesthesia via laryngeal mask airway. The right breast was prepped and draped in the usual sterile fashion. A surgical time-out was done . The patient received cefazolin 2 g IV preoperatively I marked the planned line of incision at the 10 o'clock position of the 2 o'clock position of the right breast using the Hologic localizer. I infiltrated the area at the 2 o'clock position with lidocaine 1%. I made a short transverse incision with a blade 15. This carried down with electrocautery through the full-thickness of the skin and subcutaneous fat. I then used the Hologic localizer to carefully identify the area of the lesion. I dissected circumferentially with the curved Dalton scissors, making sure that we had the RF ID tag within the specimen. This was delivered and immediate reray in the room showed both the biopsy clip and the RF ID tag were in the specimen. I had marked the specimen with sutures for orientation I examined for hemostasis. I cauterized oozing areas. Once hemostasis was then confirmed, I applied a light packing with a gauze We then proceeded to do the lumpectomy in the 2nd area which was at the 10 o'clock position. Lidocaine 1% was used for local anesthesia. I made a short incision with a blade 15. And this carried down with electrocautery through the full-thickness of the skin and subcutaneous fat. I then used the Hologic localizer to carefully identify the area of the lesion. I dissected circumferentially with a curved Dalton scissors, making sure again that we had the RF ID tag within the specimen. The specimen was delivered. Immediate reray in the room showed both the biopsy clip in the RF ID tag we are in the specimen. We cauterized oozing areas for hemostasis. I irrigated. Once hemostasis confirmed, I reapposed the deep breast tissue on both sites with Polysorb 3-0 simple interrupted sutures. Skin closure was achieved with Polysorb 4-0 subcuticular running sutures Both incisions were infiltrated with Marcaine 0.5% for postop analgesia Dressings were applied and the procedure was completed I had reviewed specimens with the pathologist and there did not appear to be any need for further excision of wider margins The patient tolerated the procedure well. There were no immediate complications. Estimated blood loss was about 100 cc The patient was extubated without difficulty and transferred to the recovery room with stable vital signs.
== END 2025-04-03 10:05 | disposition home or self-care (01) ==
PROVIDERS: Visit Provider Surgery
PROC: (CPT 19301; principal; 2025-04-03 07:30)
DX: N64.89 Other specified disorders of breast (principal); N60.89 Other benign mammary dysplasias of unspecified breast; N60.41 Mammary duct ectasia of right breast; E21.3 Hyperparathyroidism, unspecified; E55.9 Vitamin D deficiency, unspecified; Z98.890 Other specified postprocedural states
CPT/HCPCS: 19301; 88307; J0131; J0690; J1100; J2003; J2250; J2405; J2704; J2795; J3010

== ENCOUNTER → 2025-04-03 05:55 | Outpatient (BNV) | payer BC, SELFPAY | PROVIDERS: Visit Provider Surgery | DX: N64.89 Other specified disorders of breast (principal) | CPT/HCPCS: 19301 ==

== ENCOUNTER 2025-04-18 12:57 | Outpatient (AMB) | payer BC, SELFPAY ==
--- NOTE | 2025-04-18 12:58 | MHC.OFFVIS ---
Vital Signs 04/18/25 13:05 Height 5 ft 2 in Weight 147 lb BMI 26.9 BP 111/60 Blood Pressure Location Rt brachial Position Sitting Pulse 73 Intake Visit Reasons: S/P Rt. brst lumpectomy w/localizers x2 Intake Note: This patient presents for a post-op assessment status post right breast lumpectomy with Hologic localizer x2. Pt c/o; no complaints. Diesel Powerplant Mechanic Required: Yes Diesel Powerplant Mechanic Language: Wood Fence Erector Services: Diesel Powerplant Mechanic Present Diesel Powerplant Mechanic Name: Jordan Information Interpreted: non-clinical & clinical Accompanied by: Self / Same As Patient Allergies No Known Allergies Allergy (Verified 04/18/25 13:06) HPI HPI S/P Rt. brst lumpectomy w/localizers x2: Details: She had undergone lumpectomy x2 the right breast last April 03 because of biopsies showing radial scars. She tolerated the procedure well She says that she is doing well overall and denies significant pain. [facility] Medical History Radial scar of breast Left breast mass Breast mass, right Hyperparathyroidism Hypovitaminosis D Hypercalcemia Family history of diabetes mellitus Surgical History History of lumpectomy of right breast (~04/03/25) History of parathyroid surgery History of removal of calculus of renal pelvis through percutaneous nephrostomy H/O tubal ligation Family History Mother Diabetes Father Heart disease Social History Household Members: Family Housing: House Are you a primary critical care nurse to a significant other at home: No Do you presently have visiting nurse or other home services: No Alcohol intake: never Patient Tobacco Use Status: Never used Tobacco Tobacco use type: Cigarette e-Cigarette/Vaping Use: Never Used Second Hand Smoke Exposure: No service: No Current occupational status: employed Current occupation: DayCare/ right hand dominant Current occupational exposures/hazards: No Cognitive needs: No Hearing needs: No Vision needs: No Female Reproductive History Menstrual Age of Menarche: 13 Review of Systems Const Denies chills and Denies fever(s) Card Denies chest pain, Denies dyspnea and Denies dyspnea on exertion Resp Denies cough, Denies dyspnea and Denies dyspnea on exertion GI Denies hematochezia and Denies change in bowel habits Denies hematuria Musc Denies back pain and Denies limited range of motion Neuro Denies focal weakness and Denies convulsions Psych Denies depression and Denies mood swings Physical Exam Const General: comfortable and no acute distress Chest Other: Lumpectomy areas x2 healing well, no hematoma, not infected Resp Effort & Inspection: normal respiratory effort Assessment & Plan Assessment & Plan (1) Radial scar of right breast: Code(s): N64.89 - Other specified disorders of breast Category: Medical Plan: Status post lumpectomy x2. Both areas are healing well Her path report shows radial scar, usual ductal hyperplasia, pseudoangiomatous stromal hyperplasia without any evidence of high-grade lesion or malignancy I explained to him the benign nature of this path report. She is to continue with a regular screening mammograms She can follow up on a p.r.n. basis. Coding Level of Care Code Global (59332) Diagnoses Radial scar of right breast N64.89
[2025-04-18 13:05] VITALS: BP 111/60; PULSE 73; BMI 26.9
== END 2025-04-18 13:17 | disposition home or self-care (01) ==
LOC: HO.HGS 12:58
PROVIDERS: Visit Provider Surgery
DX: N64.89 Other specified disorders of breast (principal)
CPT/HCPCS: 99024

== ENCOUNTER 2025-05-17 10:04 | Outpatient (AMB) | payer BC, SELFPAY ==
--- NOTE | 2025-05-17 10:18 | MHC.OFFVIS ---
Vital Signs 05/17/25 10:19 Height 5 ft 2 in Weight 146 lb 15.997 oz BMI 26.9 BP 124/68 Blood Pressure Location Rt brachial Position Sitting Pulse 75 Intake Visit Reasons: tender bump underneath Rt br incision Intake Note: This patient presents for a wound check, for tender lump underneath right breast incision. Pt c/o; reports she feels a lump underneath right breast where she had the surgical incision, reports no redness or hot to the touch sensation, reports no vomiting, chills or fever. Machine Lacer Required: Yes Machine Lacer Language: Box Sealing Machine Feeder Services: Machine Lacer Present Accompanied by: Self / Same As Patient Allergies No Known Allergies Allergy (Verified 05/17/25 10:25) Medication List - Last Reconciled 05/17/25 by Mane Valdez MD ibuprofen 600 mg PO Q6H meloxicam 15 mg PO DAILY HPI HPI tender bump underneath Rt br incision: Details: She had undergone right breast lumpectomy last March, for a radial scar and the final path report was benign She says she thought she feels a ?lump? on the inferior aspect of the right breast and she wanted this checked She denies any other skin changes or any palpable mass. [facility] Medical History Radial scar of breast Left breast mass Breast mass, right Hyperparathyroidism Hypovitaminosis D Hypercalcemia Family history of diabetes mellitus Surgical History History of lumpectomy of right breast (~04/03/25) History of parathyroid surgery History of removal of calculus of renal pelvis through percutaneous nephrostomy H/O tubal ligation Family History Mother Diabetes Father Heart disease Social History Household Members: Family Housing: House Are you a primary home care consultant to a significant other at home: No Do you presently have visiting nurse or other home services: No Alcohol intake: never Patient Tobacco Use Status: Never used Tobacco Tobacco use type: Cigarette e-Cigarette/Vaping Use: Never Used Second Hand Smoke Exposure: No service: No Current occupational status: employed Current occupation: DayCare/ right hand dominant Current occupational exposures/hazards: No Cognitive needs: No Hearing needs: No Vision needs: No Female Reproductive History Menstrual Age of Menarche: 13 Review of Systems Const Denies chills and Denies fever(s) Card Denies chest pain, Denies dyspnea and Denies dyspnea on exertion Resp Denies cough, Denies dyspnea and Denies dyspnea on exertion GI Denies hematochezia and Denies change in bowel habits Denies hematuria Musc Denies back pain and Denies limited range of motion Neuro Denies focal weakness and Denies convulsions Psych Denies depression and Denies mood swings Physical Exam Vital Signs: Last Vital Signs Pulse 75 05/17/25 10:19 BP 124/68 05/17/25 10:19 BMI result Body Mass Index 26.9 Const General: comfortable and no acute distress Chest Other: No obvious palpable mass, no axillary lymphadenopathy, The inferior part of the right breast feels a cystic but there is no discrete mass; her incision has healed Resp Effort & Inspection: normal respiratory effort Cardio Rate: regular rate Assessment & Plan Assessment & Plan (1) Breast mass, right: Code(s): N63.10 - Unspecified lump in the right breast, unspecified quadrant Category: Medical Plan: She thought that she felt another bump on the underside of her right breast away from the previous excision site Exam shows that this is just cystic consistency without any obvious mass. I assured her about this. Her imaging study from earlier this year did not suggest any mass on this area I reminded her to come with her yearly screening mammograms. She says she is due for this in July. I will see her again after her next mammogram. Coding Level of Care Code Est Pt Level 3 (74271) Diagnoses Breast mass, right N63.10
[2025-05-17 10:19] VITALS: BP 124/68; PULSE 75; BMI 26.9
--- OUTSIDE RECORDS SUMMARY | 2025-05-17 11:46 | XMS_ITS | Clinical Summary ---
Author Organization [facility] Address [address] [place] [address] Care Team Providers Care Computer Numerical Control Grinder Name Role Phone Leanne Lopez MD Primary Care Provider [phone] Allergies No known active allergies Medications Calcium [...] (Ages 21-65) 09/14/2003 Mammogram 2022 Influenza Vaccine 02/09/2025 05/20/2021 COVID-19 Vaccine (3 - 2024-2 6 season) 2025 09/23/2020, 08/26/2020 HPV Vaccines (No Doses Required) Completed Pneumococcal Vaccine: Pediatric (0-5 Years) and At-Risk Patients (6 to 49 Years) Aged Out No longer eligible b ased on patient's age to complete this topic Insurance [facility] PREFERRED Care Teams Computer Numerical Control Grinder Relationship Specialty Start Date End Date Leanne Lopez MD [address] [place] [id number] PCP - General Family Medicine 08/01/23
== END 2025-05-17 10:41 | disposition home or self-care (01) ==
LOC: HO.HGS 10:04
PROVIDERS: PCP Internal Medicine; Visit Provider Surgery
DX: N63.10 Unspecified lump in the right breast, unspecified quadrant (principal)
CPT/HCPCS: 99024

== ENCOUNTER 2025-06-20 15:49 | Outpatient (AMB) | payer BC, SELFPAY ==
[2025-06-20 15:59] VITALS: BP 124/78; PULSE 72; O2SAT 98; BMI 26.7
--- NOTE | 2025-06-20 15:59 | A.OFFPC_ITS ---
Vital Signs 06/20/25 15:59 Height 5 ft 2 in Weight 146 lb BMI 26.7 BP 124/78 Blood Pressure Location Lt brachial Position Sitting Pulse 72 Pulse Source Pulse Oximeter Pulse Oximetry (%) 98 Oxygen Delivery Method Room Air Intake Visit Reasons: PHYSICAL Technical Professional Required: No Accompanied by: Self / Same As Patient Allergies No Known Allergies Allergy (Verified 06/20/25 16:30) Medication List - Last Reconciled 06/20/25 by Leanne Castrejon MD No Known Home Meds Tobacco use date assessed: 11/21/24 Dental Screening Dental Screen Date: 11/21/24 HPI HPI Comments History of Present Illness Details The patient is a 44 year old female presenting for her physical exam. She reports bothersome pain behind the knee due to tender varicose veins. Would be referred to vascular surgery. The patient's past surgical history includes a right breast lumpectomy, pa rathyroidectomy, renal pelvis stone removal, and a peritoneal nephrostomy. She reports no known drug allergies and is not currently taking any medications. Her family history is significant for diabetes in her mother and heart disease in her father. She denies any history of smoking or alcohol use. Regarding health maintenance, her last Pap smear was two to three years ago. Her last cholesterol check was last year with good results. She received the influenza vaccine today. [facility] Medical History (Updated 06/21/25 @ 03:29 by Leanne Castrejon MD) Radial scar of breast Left breast mass Breast mass, right Hyperparathyroidism Hypovitaminosis D Hypercalcemia Family history of diabetes mellitus Surgical History History of lumpectomy of right breast (~04/03/25) History of parathyroid surgery History of removal of calculus of renal pelvis through percutaneous nephrostomy H/O tubal ligation Family History Mother Diabetes Father Heart disease Social History Household Members: Family Housing: House Are you a primary critical care physician assistant to a significant other at home: No Do you presently have visiting nurse or other home services: No Alcohol intake: never Patient Tobacco Use Status: Never used Tobacco Tobacco use type: Cigarette e-Cigarette/Vaping Use: Never Used Second Hand Smoke Exposure: No service: No Current occupational status: employed Current occupation: DayCare/ right hand dominant Current occupational exposures/hazards: No Cognitive needs: No Hearing needs: No Vision needs: No Female Reproductive History Menstrual Age of Menarche: 13 Questionnaire PHQ-9 Over the last 2 weeks, how often have you been bothered by any of the following problems? 1. Little interest or pleasure in doing things: not at all 2. Feeling down, depressed, or hopeless: not at all 3. Trouble falling or staying asleep, or sleeping too much: not at all 4. Feeling tired or having little energy: not at all 5. Poor appetite or overeating: not at all 6. Feeling bad about yourself - or that you are a failure or have let yourself or your family down: not at all 7. Trouble concentrating on things, such as reading the newspaper or watching television: not at all 8. Moving or speaking so slowly that other people could have noticed. Or the opposite - being so fidgety or restless that you have been moving around a lot more than usual: not at all 9. Thoughts that you would be better off or of hurting yourself in some way: not at all Total score: 0 Depression Screening Interpretation: Negative Depression Screening Done: Yes Source: Developed by Drs. Hugo Sanches, Beckie Wiggins, Jose Daniel Barry and colleagues, with an educational sunshine from [employer]. Thrive Questionnaire Date Thrive assessed: 11/21/24 I am a: Patient What is your living situation today?: I have a steady place to live Within the past 12 months, did the food you bought not last and you didn't have the money to get more?: Never true Within the past 12 months, did you worry whether your food would run out before you got money to buy more?: Never true Do you have trouble paying for medicines?: No Do you have trouble getting transportation to medical appointments?: No Do you have trouble paying your heating and electricity bill?: No Do you have trouble taking care of your child, family member or friend?: No Do you have trouble with day-to-day activities such as bathing, preparing meals, shopping, managing finances, etc.?: No Are you currently unemployed and looking for a job?: No Are you interested in more education?: No Please select the resources that you would like help with: None Currently or been in a relationship where the following occur: No concerns reported THRIVE Score: 0 KAVITA-7 AMB Questionnaire KAVITA-7 Date KAVITA - 7 assessed: 11/21/24 Source: Developed by Drs. Hugo Sanches, Beckie Wiggins, Jose Daniel Barry and colleagues, with an educational sunshine from [employer]. Review of Systems Const All systems reviewed & are unremarkable except as noted in HPI and below Card Denies chest pain at rest, Denies chest pain with activity, Denies edema, Denies irregular heart rhythm, Denies claudication, Denies dyspnea, Denies dyspnea on exertion, Denies orthopnea, Denies paroxysmal nocturnal dyspnea and Denies slow heart rate Resp Denies cough, Denies dyspnea and Denies dyspnea on exertion GI Denies abdominal pain, Denies change in bowel habits, Denies excessive flatus, Denies nausea and Denies vomiting Denies urinary incontinence, Denies urinary hesitancy and Denies urinary urgency Musc Denies abnormal gait, Denies atrophy, Denies deformity and Denies limited range of motion Skin/Breast Denies bleeding lesions, Denies changing lesions and Denies rash Neuro Denies abnormal gait, Denies behavioral changes and Denies lack of coordination Psych Denies behavioral changes Physical exam (Primary Care) Vital Signs: Last Vital Signs Pulse 72 06/20/25 15:59 BP 124/78 06/20/25 15:59 Pulse Ox 98 06/20/25 15:59 Oxygen Delivery Method Room Air 06/20/25 15:59 BMI result Body Mass Index 26.7 Tobacco/Smoking Status: Tobacco use Status Tobacco use date assessed 11/21/24 06/20/25 16:00 Patient Tobacco Use Status Never used Tobacco 06/20/25 16:00 Tobacco use type Cigarette 06/20/25 16:00 e-Cigarette/Vaping Use Never Used 06/20/25 16:00 PHQ-9: PHQ-9 Score PHQ-9: Total score 0 06/20/25 16:31 Depression Screening Interpretation: Negative Thrive Assessment: Date of Thrive Assessment Date Thrive assessed 11/21/24 06/20/25 16:00 Currently or been in a relationship where the following occur: No concerns reported [facility] Head: Yes normal to inspection, Yes normocephalic and Yes atraumatic Ears: external ears normal Eyes General: appearance normal, both eyes and all related structures Eyelids: Yes eyelids normal Conjunctivae: conjunctivae normal Neck Neck: Yes normal visual inspection and Yes supple Resp Effort & Inspection: normal respiratory effort Auscultation: clear to auscultation bilaterally Cardio Jugular venous distension: no JVD Rate: regular rate Rhythm: regular rhythm Heart sounds: S1 normal heart sound present and S2 normal heart sound present GI Inspection: Yes normal to inspection Palpation (GI): Soft to palpation and nontender Auscultation: normal bowel sounds Skin General skin exam: no rashes or lesions noted Neuro General: no focal motor deficits Extrem General: Yes full ROM Psych Appearance: grossly normal Office Procedures Flu Questionnaire Does the patient have a severe egg allergy?: No Does the patient have severe life threatening allergies?: No Does the patient have a fever or illness today?: No Has the patient ever had Guillain-Redstone Syndrome?: No Has the patient ever had any past reaction to a flu shot?: No Immunizations Fluarix [id number] (PF) 45 mcg (15 mcg x 3)/0.5 mL IM syringe Performing Provider: Leanne Castrejon MD [facility] Administered by: Garima Ma CMA on 06/20/25 16:06 Dose Route Admin Location Dispensed Lot Number Expiration Date NDC Mold Cutting Machine Operator 0.5 mL IM Left Deltoid 0.5 mL [id number] 01/08/26 [id number] [employer] VIS Given Date VIS Provided VIS Publication Date 06/20/25 Single Vaccine 24 Eligibility Eligibility Date Funding Source Not [facility] Eligible 06/20/25 Private Coding Level of Care Code Est Pt Level 3 (69513) Est Pt Prev Care 40-64y(37297) Diagnoses Physical exam Z00.00 Venous insufficiency I87.2 Time Spent (min) 32 Assessment & Plan Assessment & Plan (1) Physical exam: Code(s): Z00.00 - Encounter for general adult medical examination without abnormal findings Category: Medical (2) Venous insufficiency: Code(s): I87.2 - Venous insufficiency (chronic) (peripheral) Category: Medical Plan Repeat physical exam in a year. Continue yearly mammogram. Continue yearly influenza vaccine. For venous insufficiency referred to vascular surgery. Orders: Orders Influenza [id number] Immunization 06/20/25 Z23 - Encounter for immunization Comprehensive [place]. Panel Fast 06/20/25 Z00.00 - Encounter for general adult medical examination without abnormal findings Lipid Panel 06/20/25 E78.5 - Hyperlipidemia, unspecified Referrals Vascular Surgery Referral I87.2 - Venous insufficiency (chronic) (peripheral)
--- OUTSIDE RECORDS SUMMARY | 2025-06-21 00:34 | XMS_ITS | Clinical Summary ---
Author Organization [facility] Address [address] [place] [address] Care Team Providers Care Tax Compliance Representative Name Role Phone Leanne Lopez MD Primary Care Provider [phone] Allergies No known active allergies Medications Calcium [...] patient's age to complete this topic Insurance [facility] PREFERRED Care Teams Tax Compliance Representative Relationship Specialty Start Date End Date Leanne Lopez MD [address] [place] [id number] PCP - General Family Medicine 08/01/23
== END 2025-06-20 16:40 | disposition home or self-care (01) ==
LOC: HO.HMCH 15:49
PROVIDERS: PCP Internal Medicine; Visit Provider Internal Medicine
DX: Z23 Encounter for immunization (principal)

== ENCOUNTER → 2025-06-20 15:49 | Outpatient (BNVA) | payer BC, SELFPAY | PROVIDERS: PCP Internal Medicine; Visit Provider Internal Medicine | DX: Z23 Encounter for immunization (principal); Z00.00 Encounter for general adult medical examination without abnormal findings; I87.2 Venous insufficiency (chronic) (peripheral) | CPT/HCPCS: 90471; 90656; 96127 ==